=== PATIENT | female | born 2005 | race Caucasian/White ===

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

== ENCOUNTER 2023-02-19 14:06 | Emergency (ER) | payer MEDICAID, SELFPAY ==
[2023-02-19 14:18] VITALS: BP 122/75; PULSE 115; RESP 20; TEMP 38.3; O2SAT 99; BMI 48.2
--- NOTE | 2023-02-19 14:26 | ED.GENADULT ---
HPI - General Adult General Chief complaint: Fever Stated complaint: fever, vomiting, congested Time Seen by Provider: 02/19/23 15:20 Source: patient Mode of arrival: ambulatory Limitations: no limitations History of Present Illness HPI narrative: Patient is a 17-year-old female with history of thrombocytopenia, asthma presenting to the emergency department with complaint of nasal congestion, bilateral ear pain, sore throat and shortness of breath since this morning. Reports subjective fever, chills. Denies cough. Reports mild nausea. Denies any abdominal pain, vomiting, diarrhea. Has not taken any [id number] medications for her symptoms. Denies sick contacts. Denies dysuria or other urinary symptoms. MD complaint: Nasal congestion, ear pain, sore throat Onset (ago): hour(s) Location: head and chest Radiation: non-radiation Severity: moderate Quality: dull Pain Consistency: constant Relieving factors: none Exacerbating factors: none Associated symptoms: fever/chills and shortness of breath Treatments prior to arrival: none Related Data Home Medications Medication Instructions Recorded Confirmed epinephrine 0.3 mg/0.3 mL 0.3 ml IM DIRECTED 08/05/22 08/05/22 injection, auto-injector (EpiPen) Previous Rx's Medication Instructions Recorded ibuprofen 600 mg tablet 600 mg PO Q8H PRN pain #20 tabs 02/07/21 ferrous sulfate 325 mg (65 mg 325 mg PO BID #60 tabs 08/05/22 iron) tablet Allergies Allergy/AdvReac Type Severity Reaction Status Date / Time shrimp [SHRIMP] Allergy Unknown ANGIOEDEMA Verified 02/19/23 14:18 SEASONAL ALLERGIES Allergy Unknown ITCHY EYES Uncoded 02/19/23 14:18 Review of Systems Review of Systems: As per HPI. Yes all other systems are reviewed and are negative Constitutional: Constitutional: Reports as per HPI [facility] Past Medical History Medical History Asthma Thrombocytopenia Family History Family History (Updated 08/05/22 @ 08:30 by Meredith Lisa) Maternal Grandfather Heart disease Mother Stroke Paternal Grandfather Diabetes Paternal Aunt Obesity Other H/O heart bypass surgery Social History Social History (Updated 08/05/22 @ 08:31 by Meredith Lisa) Household Members: [facility] Alcohol intake: never Patient Tobacco Use Status: Never used Tobacco Substance Use Type: Marijuana Advance Directives: No Advance Directives Information Provided: No service: No Current occupational status: employed Current occupation: rt handed/[employer] Physical Exam ED Vital Signs: Vital Signs - 24 hr 02/19/23 14:18 02/19/23 15:44 02/19/23 17:03 Temperature 101 F H 100.7 F H 100.4 F Pulse Rate 115 H 111 H Respiratory Rate 20 20 Blood Pressure 122/75 134/86 Pulse Oximetry 99 99 Oxygen Delivery Method Room Air Room Air BMI result Body Mass Index 48.2 Vital signs have been reviewed and appear to be correct. Blood pressure normal. Heart rate tachycardic. Respiratory rate normal. Febrile. Oxygen saturation normal. Const General: cooperative, healthy appearing and no acute distress Orientation/consciousness: oriented to person, oriented to place, oriented to time and patient oriented x3 Limitations: no limitations HENMT Head: Yes normocephalic and Yes atraumatic Ears: external ears normal, TM's normal bilaterally and EAC's normal General nose exam: Normal external nose present, Normal nares present and Normal septum present Face and sinus: Yes face symmetric Mouth: oropharynx normal and moist mucous membranes Throat: Yes uvula midline and Yes abnormal tonsil (erythema, edema, no exudate; no trismus) Eyes Pupils: Equal, round and reactive pupils present Neck Neck: Yes normal visual inspection, Yes no lymphadenopathy, Yes no meningeal signs and Yes supple Chest Chest palpation & inspection: normal inspection of the chest and normal palpation of entire chest wall Resp Effort & Inspection: normal respiratory effort and able to speak in complete sentences Auscultation: clear to auscultation bilaterally Cardio Rate: regular rate Rhythm: regular rhythm Heart sounds: S1 normal heart sound present and S2 normal heart sound present GI Palpation (GI): Soft to palpation and nontender Auscultation: normoactive bowel sounds General: Yes no CVA tenderness Back/Spine/Pelvis Back: no CVA tenderness Skin General skin exam: elasticity normal and turgor normal Neuro General: oriented to person, oriented to place, oriented to time, patient oriented x3, moves all extremities, no meningeal signs, no focal motor deficits and CN's II-XI intact bilaterally Cranial nerves: Yes Equal, round and reactive pupils present Cognition (Neuro): normal cognition Extrem General: Yes full ROM, Yes no pedal edema and Yes no calf tenderness Psych Mental Status: mental status grossly normal Affect: normal affect Thought process: Normal thought process present Course Course Course Narrative: RME performed by Eloisa Alvarez PA-C. Patient is a 17 year old assigned female at presenting to the emergency department with congestion and nausea. Swab ordered. Patient placed back in the waiting room pending room availability and results. Medications Administered Discontinued Medications Generic Name Dose Route Start Last Admin Trade Name Jovanna PRN Reason Stop Dose Admin Acetaminophen 975 mg 02/19/23 15:47 02/19/23 15:55 Acetaminophen 325 Mg Tablet PO 02/19/23 15:48 975 mg ONCE ONE Administration Medical Decision Making Medical Decision Making [facility] Narrative: Patient is a 17-year-old female with history of thrombocytopenia, asthma presenting to the emergency department with complaint of nasal congestion, bilateral ear pain, sore throat and shortness of breath since this morning. On exam patient is awake, A+Ox3, febrile, tachycardic, VS otherwise normal, normal neurological exam without focal deficits, erythema and edema to posterior oropharynx, no exudate, uvula midline, no trismus, no meningeal signs. Given reported symptoms and physical exam findings, differential includes strep pharyngitis, Covid, influenza, or other viral upper respiratory infection, UTI. Do not suspect sepsis. Unlikely meningitis, pneumonia. Labs notable for negative Covid, flu, and strep. UA positive for 2+ leukocytes, no nitrites, 3-5 epithelials so likely contamination as patient denies urinary symptoms. Reported symptoms and physical exam findings consistent with viral upper respiratory infection. Instructed patient to ensure adequate rest, adequate fluid intake, Tylenol and ibuprofen as needed for fever and discomfort, OTC cold medication for congestion. Instructed patient to follow-up with PCP. Return precautions discussed at bedside. Patient verbalized understanding of and agreement with plan. Differential Diagnosis Differential Diagnoses: The differential diagnosis associated with the presentation includes strep pharyngitis, Covid, influenza, or other viral upper respiratory infection, UTI Lab Data [facility] Lab Attestation statement: I reviewed the patient's lab results. Covid and flu negative Labs: Lab Results 02/19/23 02/19/23 02/19/23 Range/Units 14:43 14:43 15:45 Urine Color Urine Appearance Urine pH (5.0-9.0) Ur Specific Varney (1.005-1.025) Urine Protein (Neg-Trace) mg/dL Urine Glucose (UA) (Negative) mg/dL Urine Ketones (Negative) mg/dL Urine Blood (Negative) Urine Nitrite (Negative) Ur Leukocyte Esterase (Negative) Urine RBC (0-2) /HPF Urine WBC (0-5) /HPF Ur Squamous Epith Cells (0-2) /HPF Urine Bacteria (None Seen) Hyaline Casts (0-2) /LPF Urine Test (NEGATIVE) COVID-19 (DIXIE) Negative (Negative) COVID-19 Clin Com See Note Influenza Type A (JUAN) Negative (Negative) Influenza Type B (JUAN) Negative (Negative) Influenza A & B Note See Note S. pyogenes GrpA JUAN Negative (Negative) 02/19/23 02/19/23 Range/Units 16:19 16:19 Urine Color Yellow Urine Appearance Clear Urine pH 6.0 (5.0-9.0) Ur Specific Varney 1.025 (1.005-1.025) Urine Protein Negative (Neg-Trace) mg/dL Urine Glucose (UA) Negative (Negative) mg/dL Urine Ketones Negative (Negative) mg/dL Urine Blood Negative (Negative) Urine Nitrite Negative (Negative) Ur Leukocyte Esterase Moderate (2+) H (Negative) Urine RBC 0-2 (0-2) /HPF Urine WBC 6-10 (0-5) /HPF Ur Squamous Epith Cells 3-5 (0-2) /HPF Urine Bacteria Trace (None Seen) Hyaline Casts 0-2 (0-2) /LPF Urine Test NEGATIVE (NEGATIVE) COVID-19 (DIXIE) (Negative) COVID-19 Clin Com Influenza Type A (JUAN) (Negative) Influenza Type B (JUAN) (Negative) Influenza A & B Note S. pyogenes GrpA JUAN (Negative) External Record Review External record reviewed: Inpatient record, Office record and Outpatient record Discharge Plan Discharge Clinical Impression: Viral infection Patient Disposition: Home, Self-Care Instructions: Viral Syndrome (ED) Additional Instructions: You were evaluated in the emergency department today for fever. The evaluation, including testing for Covid, flu, and strep, suggests that the symptoms are due to a viral upper respiratory infection. Please alternate Tylenol and Motrin every 4 hours to help control your fever. Ensure plenty of rest and adequate fluid intake. Return to the emergency department immediately if you experience severe cough, fevers greater than 100.4? F that cannot be controlled with Tylenol/ibuprofen, recurrent vomiting, lethargy, seizures, shortness of breath, or any other concerning symptoms. Prescriptions: No Action ibuprofen 600 mg tablet 600 mg PO Q8H PRN (Reason: pain) Qty: 20 0RF epinephrine [EpiPen] 0.3 mg/0.3 mL auto-injector 0.3 ml IM DIRECTED ferrous sulfate 325 mg (65 mg iron) Tablet 325 mg PO BID Qty: 60 3RF
[2023-02-19 15:44] VITALS: BP 134/86; PULSE 111; RESP 20; TEMP 38.2; O2SAT 99
--- NOTE | 2023-02-19 15:48 | PC.NURSE ---
viral swab sent for strep A, pt temp 100.7 APAP ordered
--- NOTE | 2023-02-19 15:56 | PC.NURSE ---
pt medicated per mar for fever 100.7 08/31 pain
[2023-02-19 17:03] VITALS: TEMP 38
== END 2023-02-19 17:46 | disposition home or self-care (01) ==
PROVIDERS: Emergency Provider Emergency Medicine Emergency Medical Services; PCP Internal Medicine
DX: B34.9 Viral infection, unspecified (principal); J02.9 Acute pharyngitis, unspecified; R50.9 Fever, unspecified; Z20.822 Contact with and (suspected) exposure to COVID-19; F12.90 Cannabis use, unspecified, uncomplicated
CPT/HCPCS: 81001; 81025; 87086; 87502; 87635; 87651; 99283; 99284

== ENCOUNTER 2023-02-24 12:11 | Emergency (ER) | payer MEDICAID, SELFPAY ==
[2023-02-24 12:51] VITALS: BP 154/61; PULSE 85; RESP 16; TEMP 36; O2SAT 97; BMI 48.1
--- NOTE | 2023-02-24 12:52 | ED.GENADULT ---
HPI - General Adult General Chief complaint: General Medical Stated complaint: rash on body Time Seen by Provider: 02/24/23 13:02 History of Present Illness HPI narrative: patient complains of itchy rash all over her body for last several days, she did see her primary doctor who started her on Benadryl which does not seem to be helping She has no difficulty breathing no sores or swelling in her mouth or throat There are no new medications, no swelling in the throat no difficulty swallowing Related Data Home Medications Medication Instructions Recorded Confirmed epinephrine 0.3 mg/0.3 mL 0.3 ml IM DIRECTED 08/05/22 08/05/22 injection, auto-injector (EpiPen) Previous Rx's Medication Instructions Recorded ibuprofen 600 mg tablet 600 mg PO Q8H PRN pain #20 tabs 02/07/21 ferrous sulfate 325 mg (65 mg 325 mg PO BID #60 tabs 08/05/22 iron) tablet cetirizine 10 mg tablet 10 mg PO DAILY PRN allergy 02/24/23 symptoms #14 tabs permethrin 5 % topical cream 1 appl topical Q14D 2 doses #60 02/24/23 grams prednisone 20 mg tablet 60 mg PO DAILY 3 days #9 tabs 02/24/23 Allergies Allergy/AdvReac Type Severity Reaction Status Date / Time shrimp [SHRIMP] Allergy Unknown ANGIOEDEMA Verified 02/24/23 12:51 SEASONAL ALLERGIES Allergy Unknown ITCHY EYES Uncoded 02/19/23 14:18 PMFSH Past Medical History Source: nursing notes reviewed Medical History Asthma Thrombocytopenia Family History Family History (Updated 08/05/22 @ 08:30 by Meredith Lisa) Maternal Grandfather Heart disease Mother Stroke Paternal Grandfather Diabetes Paternal Aunt Obesity Other H/O heart bypass surgery Social History Social History (Updated 08/05/22 @ 08:31 by Meredith Lisa) Household Members: Family Housing: Condominium Alcohol intake: never Patient Tobacco Use Status: Never used Tobacco Substance Use Type: Marijuana Advance Directives: No service: No Current occupational status: employed Current occupation: rt handed/[employer] Physical Exam ED Vital Signs: Vital Signs - 24 hr 02/24/23 12:51 Temperature 96.8 F Pulse Rate 85 Respiratory Rate 16 Blood Pressure 154/61 H Pulse Oximetry 97 Oxygen Delivery Method Room Air BMI result Body Mass Index 48.1 general appearance comfortable no distress calm and cooperative The eyes no redness or discharge The sinuses nontender The pharynx is clear, no redness swelling or exudate, voice is normal no swelling of lips tongue or uvula no drooling Respiratory no distress Extremities range motion x4 Skin there is a papular excoriated rash over most of the body, including the palms and the web spaces of the hands, no petechiae no purpura no significant erythema no swelling no signs of cellulitis or abscess, rashes both sides of the body, no vesicular rash no unilateral rash Course Course Course Narrative: This is an RME: Additional HPI, ROS, PE not included below will be deferred to primary provider. 17-year-old female with history of thrombocytopenia and asthma presenting to the emergency department with complaint of diffusely itchy rash and headache. Was seen here last week was diagnosed with a viral infection. Was given benadryl for rash which she has taken without relief. ?purpura noted to bilateral palms. Plan: Basic labs patient with papular rash including palms and soles and web spaces is treated with permethrin for possible scabies, cetirizine and prednisone for itchy rash RPR testing for syphilis is done and well-appearing patient is discharged She has thrombocytopenia and her platelets today were 89 which is good for her, she has no bleeding from anywhere Medical Decision Making Lab Data 02/24/23 13:14 02/24/23 13:14 Labs: Lab Results 02/24/23 02/24/23 02/24/23 Range/Units 13:14 13:14 13:14 WBC 9.0 (4.8-10.8) X10*3/uL RBC 5.17 (4.20-5.50) X10*6/uL Hgb 12.9 (12.0-16.0) g/dl Hct 40.5 (37.0-47.0) % MCV 78.3 L (80.0-98.0) fL MCH 25.0 L (27.0-33.0) pg MCHC 31.9 (31.0-35.0) g/dl RDW 13.5 (11.0-16.0) % Plt Count 89 L (160-400) X10*3/uL MPV Not Reportable Immature Gran % (Auto) 0.6 H (0.0-0.4) % Neut % (Auto) 62.5 (45-73) % Lymph % (Auto) 30.6 (20-40) % [place] % (Auto) 5.0 (2-11) % Eos % (Auto) 0.6 (0-4) % Baso % (Auto) 0.7 (0-2) % Lymph # (Auto) 2.7 (1.2-4.9) X10*3/uL [place] # (Auto) 0.5 (0.1-1.2) X10*3/uL Eos # (Auto) 0.1 (0.0-0.4) X10*3/uL Baso # (Auto) 0.1 (0.0-0.2) X10*3/uL Abs Immat Gran (auto) 0.05 H (0.00-0.03) X10*3/uL Absolute Neuts (auto) 5.6 (2.0-8.3) x10*3/uL Absolute Nucleated RBC 0.000 (0.0-0.012) X10*3/uL Nucleated RBC % (auto) 0.0 (0.0-0.2) /100WBC Smear Tech's Comments VERIFIED PT (10.0-13.1) SEC INR (0.9-1.1) APTT Cancelled Sodium 139 (135-145) mmol/L Potassium 4.1 (3.3-5.1) mmol/L Chloride 106 (96-108) mmol/L Carbon Dioxide 23 (22-29) mmol/L Anion Gap 14 (12-20) BUN 9 (9-16) mg/dL Creatinine 0.68 (0.5-1.4) mg/dL Estim Creat Clear Calc 175.6 Estimated GFR > 60 Random Glucose 87 (60-115) mg/dL Calcium 9.8 D (8.4-10.2) mg/dL Total Bilirubin 0.5 (0.0-1.0) mg/dL Direct Bilirubin 0.1 (0.0-0.5) mg/dL AST 14 (5-31) U/L ALT 14 (0-31) U/L Alkaline Phosphatase 68 (39-117) U/L Total Protein 7.9 (6.5-8.0) g/dL Albumin 4.2 (3.5-5.0) g/dL 02/24/23 Range/Units 13:14 WBC (4.8-10.8) X10*3/uL RBC (4.20-5.50) X10*6/uL Hgb (12.0-16.0) g/dl Hct (37.0-47.0) % MCV (80.0-98.0) fL MCH (27.0-33.0) pg MCHC (31.0-35.0) g/dl RDW (11.0-16.0) % Plt Count (160-400) X10*3/uL MPV Immature Gran % (Auto) (0.0-0.4) % Neut % (Auto) (45-73) % Lymph % (Auto) (20-40) % [place] % (Auto) (2-11) % Eos % (Auto) (0-4) % Baso % (Auto) (0-2) % Lymph # (Auto) (1.2-4.9) X10*3/uL [place] # (Auto) (0.1-1.2) X10*3/uL Eos # (Auto) (0.0-0.4) X10*3/uL Baso # (Auto) (0.0-0.2) X10*3/uL Abs Immat Gran (auto) (0.00-0.03) X10*3/uL Absolute Neuts (auto) (2.0-8.3) x10*3/uL Absolute Nucleated RBC (0.0-0.012) X10*3/uL Nucleated RBC % (auto) (0.0-0.2) /100WBC Smear Tech's Comments PT 11.7 (10.0-13.1) SEC INR 1.0 (0.9-1.1) APTT 32.6 Sodium (135-145) mmol/L Potassium (3.3-5.1) mmol/L Chloride (96-108) mmol/L Carbon Dioxide (22-29) mmol/L Anion Gap (12-20) BUN (9-16) mg/dL Creatinine (0.5-1.4) mg/dL Estim Creat Clear Calc Estimated GFR Random Glucose (60-115) mg/dL Calcium (8.4-10.2) mg/dL Total Bilirubin (0.0-1.0) mg/dL Direct Bilirubin (0.0-0.5) mg/dL AST (5-31) U/L ALT (0-31) U/L Alkaline Phosphatase (39-117) U/L Total Protein (6.5-8.0) g/dL Albumin (3.5-5.0) g/dL Discharge Plan Discharge Clinical Impression: Rash Patient Disposition: Home, Self-Care Additional Instructions: we are treating for possible scabies with permethrin cream, you put it all over her body and leave it overnight for at least 10 hours then shower it off, then repeat the same process in 2 weeks We also tested for possible syphilis which can cause a rash on the palms If test is positive we will call you and if you do not fruit picker we will leave a message on the machine If you get a message on the machine make sure to call us back at [phone] and ask for the physician assistant tennis professional who is doing lab follow ups We will not call back if testing is normal Return to the ER any time any worse condition or concerns Of treatment provided today does not work follow with primary doctor for referral to a staffing consultant Prescriptions: New prednisone 20 mg tablet 60 mg PO DAILY 3 Days Qty: 9 0RF cetirizine 10 mg tablet 10 mg PO DAILY PRN (Reason: allergy symptoms) Qty: 14 0RF permethrin 5 % cream 1 appl topical Q14D Qty: 60 0RF Rx Instructions: apply second treatment 14 days from neck to bottom of feet, leave on 10 hours then shower No Action ibuprofen 600 mg tablet 600 mg PO Q8H PRN (Reason: pain) Qty: 20 0RF epinephrine [EpiPen] 0.3 mg/0.3 mL auto-injector 0.3 ml IM DIRECTED ferrous sulfate 325 mg (65 mg iron) Tablet 325 mg PO BID Qty: 60 3RF Interventions: ED Discharge Assessment Last Done: 02/24/23 14:40 Discharge Date/Time: 02/24/23 14:40
--- NOTE | 2023-02-24 13:03 | ED.GENADULT ---
HPI - General Adult General Chief complaint: General Medical Stated complaint: rash on body Time Seen by Provider: 02/24/23 13:02 History of Present Illness HPI narrative: there is a full note for this patient, this visit already dictated see other note Related Data Home Medications Medication Instructions Recorded Confirmed epinephrine 0.3 mg/0.3 mL 0.3 ml IM DIRECTED 08/05/22 08/05/22 injection, auto-injector (EpiPen) Previous Rx's Medication Instructions Recorded ibuprofen 600 mg tablet 600 mg PO Q8H PRN pain #20 tabs 02/07/21 ferrous sulfate 325 mg (65 mg 325 mg PO BID #60 tabs 08/05/22 iron) tablet cetirizine 10 mg tablet 10 mg PO DAILY PRN allergy 02/24/23 symptoms #14 tabs permethrin 5 % topical cream 1 appl topical Q14D 2 doses #60 02/24/23 grams prednisone 20 mg tablet 60 mg PO DAILY 3 days #9 tabs 02/24/23 Allergies Allergy/AdvReac Type Severity Reaction Status Date / Time shrimp [SHRIMP] Allergy Unknown ANGIOEDEMA Verified 02/24/23 12:51 SEASONAL ALLERGIES Allergy Unknown ITCHY EYES Uncoded 02/19/23 14:18 PMFSH Past Medical History Medical History Asthma Thrombocytopenia Family History Family History (Updated 08/05/22 @ 08:30 by Meredith Lisa) Maternal Grandfather Heart disease Mother Stroke Paternal Grandfather Diabetes Paternal Aunt Obesity Other H/O heart bypass surgery Social History Social History (Updated 08/05/22 @ 08:31 by Meredith Lisa) Household Members: [facility] Alcohol intake: never Patient Tobacco Use Status: Never used Tobacco Substance Use Type: Marijuana Advance Directives: No service: No Current occupational status: employed Current occupation: rt handed/[employer] Physical Exam ED Vital Signs: Vital Signs - 24 hr 02/24/23 12:51 Temperature 96.8 F Pulse Rate 85 Respiratory Rate 16 Blood Pressure 154/61 H Pulse Oximetry 97 Oxygen Delivery Method Room Air BMI result Body Mass Index 48.1 Medical Decision Making Lab Data 02/24/23 13:14 02/24/23 13:14 Labs: Lab Results 07/06/23 07/06/23 07/06/23 Range/Units 13:14 13:14 13:14 WBC 9.0 (4.8-10.8) X10*3/uL RBC 5.17 (4.20-5.50) X10*6/uL Hgb 12.9 (12.0-16.0) g/dl Hct 40.5 (37.0-47.0) % MCV 78.3 L (80.0-98.0) fL MCH 25.0 L (27.0-33.0) pg MCHC 31.9 (31.0-35.0) g/dl RDW 13.5 (11.0-16.0) % Plt Count 89 L (160-400) X10*3/uL MPV Not Reportable Immature Gran % (Auto) 0.6 H (0.0-0.4) % Neut % (Auto) 62.5 (45-73) % Lymph % (Auto) 30.6 (20-40) % [place] % (Auto) 5.0 (2-11) % Eos % (Auto) 0.6 (0-4) % Baso % (Auto) 0.7 (0-2) % Lymph # (Auto) 2.7 (1.2-4.9) X10*3/uL [place] # (Auto) 0.5 (0.1-1.2) X10*3/uL Eos # (Auto) 0.1 (0.0-0.4) X10*3/uL Baso # (Auto) 0.1 (0.0-0.2) X10*3/uL Abs Immat Gran (auto) 0.05 H (0.00-0.03) X10*3/uL Absolute Neuts (auto) 5.6 (2.0-8.3) x10*3/uL Absolute Nucleated RBC 0.000 (0.0-0.012) X10*3/uL Nucleated RBC % (auto) 0.0 (0.0-0.2) /100WBC Smear Tech's Comments VERIFIED PT (10.0-13.1) SEC INR (0.9-1.1) APTT Cancelled Sodium 139 (135-145) mmol/L Potassium 4.1 (3.3-5.1) mmol/L Chloride 106 (96-108) mmol/L Carbon Dioxide 23 (22-29) mmol/L Anion Gap 14 (12-20) BUN 9 (9-16) mg/dL Creatinine 0.68 (0.5-1.4) mg/dL Estim Creat Clear Calc 175.6 Estimated GFR > 60 Random Glucose 87 (60-115) mg/dL Calcium 9.8 D (8.4-10.2) mg/dL Total Bilirubin 0.5 (0.0-1.0) mg/dL Direct Bilirubin 0.1 (0.0-0.5) mg/dL AST 14 (5-31) U/L ALT 14 (0-31) U/L Alkaline Phosphatase 68 (39-117) U/L Total Protein 7.9 (6.5-8.0) g/dL Albumin 4.2 (3.5-5.0) g/dL 02/24/23 Range/Units 13:14 WBC (4.8-10.8) X10*3/uL RBC (4.20-5.50) X10*6/uL Hgb (12.0-16.0) g/dl Hct (37.0-47.0) % MCV (80.0-98.0) fL MCH (27.0-33.0) pg MCHC (31.0-35.0) g/dl RDW (11.0-16.0) % Plt Count (160-400) X10*3/uL MPV Immature Gran % (Auto) (0.0-0.4) % Neut % (Auto) (45-73) % Lymph % (Auto) (20-40) % [place] % (Auto) (2-11) % Eos % (Auto) (0-4) % Baso % (Auto) (0-2) % Lymph # (Auto) (1.2-4.9) X10*3/uL [place] # (Auto) (0.1-1.2) X10*3/uL Eos # (Auto) (0.0-0.4) X10*3/uL Baso # (Auto) (0.0-0.2) X10*3/uL Abs Immat Gran (auto) (0.00-0.03) X10*3/uL Absolute Neuts (auto) (2.0-8.3) x10*3/uL Absolute Nucleated RBC (0.0-0.012) X10*3/uL Nucleated RBC % (auto) (0.0-0.2) /100WBC Smear Tech's Comments PT 11.7 (10.0-13.1) SEC INR 1.0 (0.9-1.1) APTT 32.6 Sodium (135-145) mmol/L Potassium (3.3-5.1) mmol/L Chloride (96-108) mmol/L Carbon Dioxide (22-29) mmol/L Anion Gap (12-20) BUN (9-16) mg/dL Creatinine (0.5-1.4) mg/dL Estim Creat Clear Calc Estimated GFR Random Glucose (60-115) mg/dL Calcium (8.4-10.2) mg/dL Total Bilirubin (0.0-1.0) mg/dL Direct Bilirubin (0.0-0.5) mg/dL AST (5-31) U/L ALT (0-31) U/L Alkaline Phosphatase (39-117) U/L Total Protein (6.5-8.0) g/dL Albumin (3.5-5.0) g/dL Discharge Plan Discharge Clinical Impression: Rash Patient Disposition: Home, Self-Care Additional Instructions: we are treating for possible scabies with permethrin cream, you put it all over her body and leave it overnight for at least 10 hours then shower it off, then repeat the same process in 2 weeks We also tested for possible syphilis which can cause a rash on the palms If test is positive we will call you and if you do not apple picking supervisor we will leave a message on the machine If you get a message on the machine make sure to call us back at [phone] and ask for the physician recreational assistant who is doing lab follow ups We will not call back if testing is normal Return to the ER any time any worse condition or concerns Of treatment provided today does not work follow with primary doctor for referral to a human resources services specialist Prescriptions: New prednisone 20 mg tablet 60 mg PO DAILY 3 Days Qty: 9 0RF cetirizine 10 mg tablet 10 mg PO DAILY PRN (Reason: allergy symptoms) Qty: 14 0RF permethrin 5 % cream 1 appl topical Q14D Qty: 60 0RF Rx Instructions: apply second treatment 14 days from neck to bottom of feet, leave on 10 hours then shower No Action ibuprofen 600 mg tablet 600 mg PO Q8H PRN (Reason: pain) Qty: 20 0RF epinephrine [EpiPen] 0.3 mg/0.3 mL auto-injector 0.3 ml IM DIRECTED ferrous sulfate 325 mg (65 mg iron) Tablet 325 mg PO BID Qty: 60 3RF Interventions: ED Discharge Assessment Last Done: 02/24/23 14:40 Discharge Date/Time: 02/24/23 14:40
[2023-02-24 13:42] LABS: Alanine Aminotransferase 14 U/L (0-31); Albumin Level 4.2 g/dL (3.5-5.0); Alkaline Phosphatase 68 U/L (39-117); Anion Gap 14 (12-20); Aspartate Amino Transferase 14 U/L (5-31); Bilirubin Direct 0.1 mg/dL (0.0-0.5); Bilirubin Total 0.5 mg/dL (0.0-1.0); Blood Urea Nitrogen 9 mg/dL (9-16); Calcium 9.8 mg/dL (8.4-10.2); Carbon Dioxide 23 mmol/L (22-29); Chloride 106 mmol/L (96-108); Creatinine Clr Calc Pharmacy 175.6; Estimated Glomerular Filt Rate > 60; Glucose Random 87 mg/dL (60-115); Potassium 4.1 mmol/L (3.3-5.1); Sodium 139 mmol/L (135-145); Total Protein 7.9 g/dL (6.5-8.0)
== END 2023-02-24 14:40 | disposition home or self-care (01) ==
PROVIDERS: Physician Assistant Medical; Emergency Provider Emergency Medicine Emergency Medical Services
DX: R21 Rash and other nonspecific skin eruption (principal); F12.90 Cannabis use, unspecified, uncomplicated; Z79.899 Other long term (current) drug therapy
CPT/HCPCS: 36415; 80048; 80076; 85025; 85610; 85730; 86780; 99283

== ENCOUNTER 2023-05-19 11:19 | Outpatient (REF) | payer MEDICAID, SELFPAY ==
[2023-05-19 13:00] LABS: MANUAL DIFF FLAG NO
[2023-05-19 13:30] LABS: Basophils Absolute Auto 0.1 X10*3/uL (0.0-0.2); Basophils Percent Auto 0.6 % (0-2); Eosinophils Absolute Auto 0.1 X10*3/uL (0.0-0.4); Eosinophils Percent Auto 0.6 % (0-4); Hematocrit 41.8 % (37.0-47.0); Hemoglobin 13.2 g/dl (12.0-16.0); Imm Gran Abs Auto 0.07 X10*3/uL (0.00-0.03); Imm Gran Pct Auto 0.6 % (0.0-0.4); Lymphocytes Absolute Auto 2.8 X10*3/uL (1.2-4.9); Lymphocytes Percent Auto 22.8 % (20-40); Mean Corpuscular HGB Conc 31.6 g/dl (31.0-35.0); Mean Corpuscular Hemoglobin 25.2 pg (27.0-33.0); Mean Corpuscular Volume 79.8 fL (80.0-98.0); Monocytes Absolute Auto 0.9 X10*3/uL (0.1-1.2); Monocytes Percent Auto 7.5 % (2-11); Neutrophils Absolute Auto 8.4 x10*3/uL (2.0-8.3); Neutrophils Percent Auto 67.9 % (45-73); Red Blood Count 5.24 X10*6/uL (4.20-5.50); Red Cell Distribution Width 15.1 % (11.0-16.0); White Blood Count 12.4 X10*3/uL (4.8-10.8)
[2023-05-19 13:31] LABS: Platelet Count 52 X10*3/uL (160-400)
[2023-05-19 13:57] LABS: Iron 27 mcg/dL (30-160); Percent Iron Saturation 8 % (15-50); Total Iron Binding Capacity 357 mcg/dL (228-428); Unsaturated Iron Binding 330 ug/dL
[2023-05-19 16:51] LABS: CT PCR NOT DETECTED (Not Detect.); NG PCR NOT DETECTED (Not Detect.)
[2023-05-20 03:11] LABS: Syphilis Screen Nonreactive (Nonreactive)
[2023-05-20 03:47] LABS: HIV AB/AG Nonreactive (Nonreactive); HIV Num 1 0.07 S/CO (0.00-0.99); ~HepC Num1 0.06 S/CO (0.00-0.79); ~Hepatitis C Antibody Nonreactive (Nonreactive)
== END 2023-05-19 11:20 | disposition home or self-care (01) ==
LOC: HO.HHCL 11:19
PROVIDERS: Visit Provider Internal Medicine
DX: Z30.09 Encounter for other general counseling and advice on contraception (principal); D69.6 Thrombocytopenia, unspecified
CPT/HCPCS: 0353U; 83540; 85025; 86780; 86803; 87389

== ENCOUNTER 2023-12-30 14:47 | Emergency (ER) | payer OTHER, SELFPAY ==
[2023-12-30] VITALS (10 sets, daily range): BP systolic 101–160; BP diastolic 32–80; PULSE 74–95; RESP 14–20; TEMP 36.4–37.2; O2SAT 100; BMI 41.3
--- NOTE | ~2023-12-30 | XR_ITS ---
EXAMINATION: XR CHEST CLINICAL INFORMATION: Dyspnea COMPARISON: None available. TECHNIQUE: Frontal view of the chest was obtained. FINDINGS: No significant abnormality is noted involving the heart, lungs, mediastinum, bony thorax or soft tissues. XR/XR chest 1V IMPRESSION: Unremarkable examination.
--- NOTE | 2023-12-30 15:05 | PC.NURSE ---
patient a&ox3, vss, pt speaking in full sentences- O2 sat wnl, conveyor monitor applied nsr to sinus tach on monitor. pt states she is a difficult stick and they use ultrasound guided. will notify provider
--- NOTE | 2023-12-30 15:17 | ECG_ITS ---
Test Reason : TACHYCARDIA Blood Pressure : / mmHG Vent. Rate : 091 BPM Atrial Rate : 091 BPM P-R Int : 130 ms QRS Dur : 096 ms QT Int : 342 ms P-R-T Axes : 005 040 023 degrees QTc Int : 420 ms Normal sinus rhythm with sinus arrhythmia Normal ECG When compared with ECG of 15-SEP-2017 13:33, No significant changes seen Referred By: Junior Mcclain Electronically Signed By:Todd Powell
--- NOTE | 2023-12-30 15:23 | ED.GENADULT ---
HPI - General Adult General Chief complaint: Recheck/Abnormal Lab/Rx Stated complaint: VAGINAL BLEEDING Time Seen by Provider: 12/30/23 15:09 Source: patient Limitations: no limitations History of Present Illness HPI narrative: 18 years old with past medical history of PCOS, iron deficiency anemia, thrombocytopenia recently seen in the hospital for vaginal bleeding and started on medroxyprogesterone on December 21, presents to the emergency room sent by her primary care doctor for low hemoglobin. Patient reports that over the past few weeks and especially over the past few days she had worsening shortness of breath on exertion and palpitations. She reports since she started the progesterone her vaginal bleeding has stopped. Today per her PCP her hemoglobin was 4.5. Patient is also on iron. Patient denies abdominal pain nausea or vomiting, denies rectal bleeding or hematemesis. Related Data Home Medications ?Medication ?Instructions ?Recorded ?Confirmed epinephrine 0.3 mg/0.3 mL 0.3 ml IM DIRECTED 08/05/22 08/05/22 injection, auto-injector (EpiPen) Previous Rx's ?Medication ?Instructions ?Recorded ibuprofen 600 mg tablet 600 mg PO Q8H PRN pain #20 tabs 02/07/21 ferrous sulfate 325 mg (65 mg 325 mg PO BID #60 tabs 08/05/22 iron) tablet cetirizine 10 mg tablet 10 mg PO DAILY PRN allergy 02/24/23 symptoms #14 tabs permethrin 5 % topical cream 1 appl topical Q14D 2 doses #60 02/24/23 grams prednisone 20 mg tablet 60 mg (3 x 20 mg) PO DAILY 3 days 02/24/23 #9 tabs Allergies Allergy/AdvReac Type Severity Reaction Status Date / Time shrimp [SHRIMP] Allergy Unknown ANGIOEDEMA Verified 12/30/23 15:02 Review of Systems Review of Systems: Yes all other systems are reviewed and are negative [facility] Past Medical History Medical History Asthma Thrombocytopenia Family History Family History (Updated 08/05/22 @ 08:30 by Meredith Lisa) Maternal Grandfather Heart disease Mother Stroke Paternal Grandfather Diabetes Paternal Aunt Obesity Other H/O heart bypass surgery Social History Social History (Updated 08/05/22 @ 08:31 by Meredith Lisa) Household Members: [facility] Alcohol intake: never Patient Tobacco Use Status: Never used Tobacco Smoked in Last 30 Days: No Use of substances other than those prescribed or required for medical reasons: No Substance Use Type: Marijuana Advance Directives: No Advance Directives Information Provided: No Do you have a plan to hurt others: No Plan service: No Current occupational status: employed Current occupation: rt handed/[employer] Physical Exam ED Vital Signs: Vital Signs - 24 hr 12/30/23 15:00 12/30/23 16:54 12/30/23 18:13 Temperature 97.5 F 97.6 F 97.8 F Pulse Rate 89 88 74 Respiratory Rate 18 15 16 Blood Pressure 130/63 114/48 L 119/65 Pulse Oximetry 100 100 100 Oxygen Delivery Method Room Air Room Air Room Air 12/30/23 19:56 12/30/23 20:02 12/30/23 20:13 Temperature 98.9 F 98.9 F 98.7 F Pulse Rate 88 87 89 Respiratory Rate 16 17 14 Blood Pressure 101/32 L 102/33 L 118/45 L Pulse Oximetry 100 Oxygen Delivery Method Room Air BMI result Body Mass Index 41.3 General: Alert, Not in Distress Skin: No rash, warm HEENT: Atraumatic, No Exudate or Pharyngeal Erythema Resp: Normal Breath sounds bilaterally Cardio: Regular rate and Rhythm, Normal S1, S2 ABD: Abd soft, non tender, no guarding or rebound. Normal Bowel sounds. : No cva tenderness. No active vaginal bleeding Neuro: Alert, oriented x4, PERRL Strenght 5/5 on all extremities Sensation is preserved in both lower and upper extremities Index to nose: normal Cranial Nerves II-XII grossly intact No dysarthria, or aphasia No neglet. Visual chakraborty are normal bilaterally Psych: Cooperative, NO SI Course Reevaluation(s) Reevaluation #1: Discuss case with OB on-call Dr. Workman, he recommended outpatient follow-up closely with the patient's bull bucker, I spoke with the patient herself and she told me that her gynecology work at [facility], Dr. Balderas, she recently had an appointment and her OBGYN told her that most likely the bleeding is secondary to PCOS, I recommended that once she gets discharged from the hospital she needs to follow-up closely with the bull bucker, patient understands and agrees with plan. Plan at this time is to transfuse 3 units of RBC and discharged home if no complication. Time: 15:57 Reevaluation #2: Patient's hemoglobin 6.0, will transfuse then only 1 units to reach out a level of 7 grams/deciliter. Patient has already started on iron by PCP. Rest of the lab work is pending at this time. Time: 16:36 Reevaluation #3: In consideration of the fact the patient was very symptomatic going to the bathroom, and the fact that she had an hemoglobin of 4.5 and outpatient today and hemoglobin today 6. I discussed the pros and cons with patient of transfusing 2 units rather than 1 eventually we did showed this is amazing in transfusing 2 units. Patient he starting out 1st unit. Will send out care at 9:[address] Vides Time: 20:09 Medications Administered Discontinued Medications Generic Name Dose Route Start Last Admin Trade Name Freq PRN Reason Stop Dose Admin Sodium Chloride 100 mls @ 100 mls/hr 12/30/23 15:33 12/30/23 19:56 Ns IV 12/30/23 16:32 100 mls/hr ONCE ONE Administration Sodium Chloride 100 mls @ 100 mls/hr 12/30/23 15:33 12/30/23 20:04 Ns IV 12/30/23 16:32 Not Given ONCE ONE Medical Decision Making Medical Decision Making [facility] Narrative: Patient presents to the emergency room for outpatient blood work that showed anemia of 4.5 likely from chronic vaginal bleeding the patient is having since September. Patient will talk to me bleeding, tachycardic on arrival but otherwise stable. Plan is to transfuse 3 units of blood to reach hemoglobin level of 7.5. We will confirm 1st hemoglobin level with CBC, will get a type and screen. Given patient's tachycardia will get an EKG and given the shortness of breath will get a chest x-ray. We will consult body line finisher Lab Data 12/30/23 16:18 Labs: Lab Results 12/30/23 12/30/23 Range/Units 16:17 16:18 WBC 8.9 (4.8-10.8) X10*3/uL RBC 2.40 L D (4.20-5.50) X10*6/uL Hgb 6.0 L* D (12.0-16.0) g/dl Hct 20.1 L* D (37.0-47.0) % MCV 83.8 (80.0-98.0) fL MCH 25.0 L (27.0-33.0) pg MCHC 29.9 L (31.0-35.0) g/dl RDW 15.2 (11.0-16.0) % Plt Count 342 D (160-400) X10*3/uL MPV 11.8 (9.4-12.3) fL Immature Gran % (Auto) 1.2 H (0.0-0.4) % Neut % (Auto) 68.4 (45-73) % Lymph % (Auto) 22.2 (20-40) % [place] % (Auto) 7.0 (2-11) % Eos % (Auto) 0.3 (0-4) % Baso % (Auto) 0.9 (0-2) % Lymph # (Auto) 2.0 (1.2-4.9) X10*3/uL [place] # (Auto) 0.6 (0.1-1.2) X10*3/uL Eos # (Auto) 0.0 (0.0-0.4) X10*3/uL Baso # (Auto) 0.1 (0.0-0.2) X10*3/uL Abs Immat Gran (auto) 0.11 H (0.00-0.03) X10*3/uL Absolute Neuts (auto) 6.1 (2.0-8.3) x10*3/uL Absolute Nucleated RBC 0.110 H (0.0-0.012) X10*3/uL Nucleated RBC % (auto) 1.2 H (0.0-0.2) /100WBC Hold Purple Top SEE NOTE PT 13.0 (11.1-13.3) SEC INR 1.1 (0.9-1.1) Vitamin B12 399 (200-900) pg/mL Folate 15.8 (> or = 4.0) ng/mL Hold Red Top See Note Urine Test Cancelled Blood Type A Positive Antibody Screen NEGATIVE Crossmatch See Detail Independent Interpretation I performed an independent interpretation of an: EKG (I personally interpreted and reviewed patient's EKG that shows normal sinus rhythm) Critical Care Time Critical Care Time Critical Care Time: Yes Total Critical Care Time: 35 Attestation: The patient was critical ill with high probability of imminent of life-threatening deterioration, due to severe anemia I spent 35 minutes of discontinuous time evaluating the patient, delivering critical care at bedside, discussing and evaluating parents and does not with wedding consultant, critical care time does not include time spent performing separately billable procedure or teaching. Discharge Plan Discharge Clinical Impression: Anemia Qualifiers: Anemia type: iron deficiency Additional Instructions: You were seen in the emergency room for low hemoglobin. On our evaluation your hemoglobin was 6.0. We transfused 2 units of blood. We contacted our OBGYN service who recommended for you to follow-up closely as an outpatient with your OBGYN. Please call the office tomorrow to schedule an appointment. Continue take iron p.o.. Return to the emergency room if your symptoms worsen or if you experience new vaginal bleeding. Prescriptions: No Action ibuprofen 600 mg tablet 600 mg PO Q8H PRN (Reason: pain) Qty: 20 0RF epinephrine [EpiPen] 0.3 mg/0.3 mL auto-injector 0.3 ml IM DIRECTED ferrous sulfate 325 mg (65 mg iron) Tablet 325 mg PO BID Qty: 60 3RF prednisone 20 mg tablet 60 mg PO DAILY 3 Days Qty: 9 0RF cetirizine 10 mg tablet 10 mg PO DAILY PRN (Reason: allergy symptoms) Qty: 14 0RF permethrin 5 % cream 1 appl topical Q14D Qty: 60 0RF Rx Instructions: apply second treatment 14 days from neck to bottom of feet, leave on 10 hours then shower Print Language: Greek
[2023-12-30 16:27] LABS: MANUAL DIFF FLAG NO
[2023-12-30 16:28] LABS: Basophils Absolute Auto 0.1 X10*3/uL (0.0-0.2); Basophils Percent Auto 0.9 % (0-2); Eosinophils Percent Auto 0.3 % (0-4); Imm Gran Abs Auto 0.11 X10*3/uL (0.00-0.03); Imm Gran Pct Auto 1.2 % (0.0-0.4); Lymphocytes Percent Auto 22.2 % (20-40); Mean Corpuscular HGB Conc 29.9 g/dl (31.0-35.0); Mean Corpuscular Volume 83.8 fL (80.0-98.0); Mean Platelet Volume 11.8 fL (9.4-12.3); Monocytes Absolute Auto 0.6 X10*3/uL (0.1-1.2); Neutrophils Absolute Auto 6.1 x10*3/uL (2.0-8.3); Neutrophils Percent Auto 68.4 % (45-73); Platelet Count 342 X10*3/uL (160-400); Red Cell Distribution Width 15.2 % (11.0-16.0); White Blood Count 8.9 X10*3/uL (4.8-10.8)
[2023-12-30 16:30] LABS: NRBC Pct Auto 1.2 /100WBC (0.0-0.2)
[2023-12-30 16:35] LABS: Hematocrit 20.1 % (37.0-47.0); INTERNATIONAL NORM RATIO 1.1 (0.9-1.1)
[2023-12-30 17:22] LABS: Folate 15.8 ng/mL (> or = 4.0); Vitamin B12 399 pg/mL (200-900)
--- NOTE | 2023-12-30 17:52 | PC.NURSE ---
second t&s drawn per request of lab, awaiting blood pt continues to be A&Ox3, family at bedside, denies pain/discomfort at this time, will continue to monitor
--- NOTE | 2023-12-30 18:34 | PC.NURSE ---
this nurse got a phone call from the lab stating that the patients 2nd T&S pink tube was not collected correctly and that we need to scan it. This nurse spoke with multiple techs as well as charge nurse who stated that we use a chart sticker, our mnemonics date/time as well as a sticker from the blood bank band, the lab stated this was incorrect and it needed to be scanned- there is no order on our side showing this to be scanned. the lab stated they cancelled and reordered it, had this nurse look and it still does not show. this nurse told the lab that this patient is an extremely difficult stick/draw with an US IV which was a difficult placement as well and if they needed to have another draw that a high school social studies tutor will need to come to the ED and do the draw and scan it off since we are unable to see this order. The provider has been notified of this as well.
--- NOTE | 2023-12-30 20:00 | PC.NURSE ---
pt is axox4. vitals as documented bp 101/32 asymptomatic. blood infusion started per Tar. pt is speaking full clear sentences. denies cp/sob/n/v/d. nsr on monitor. lung sounds cta. call laureano within reach.
--- NOTE | 2023-12-30 20:14 | PC.NURSE ---
no reactions after initial 15 min blood transfusion. RBC continuing to infuse. vitals as documented.
--- NOTE | 2023-12-30 20:39 | PC.NURSE ---
pt refused using purewick/commode. pt ambulatory to bathroom with steady gait with .
[2023-12-30] MEDS: Acetaminophen 325 MG TABLET 975 MG PO (21:28)
--- NOTE | 2023-12-30 21:30 | PC.NURSE ---
pt reports HOLLAND onset prior to arrival. reports improved after eating food/drink water however pain still 03/31. tylenol given per oct. pt resting comfortably nad. blood infusing no reactions noted at this time. vss. call laureano within reach.
[2023-12-30 21:50] LABS: Iron 12 mcg/dL (30-160); Percent Iron Saturation 3 % (15-50); Total Iron Binding Capacity 406 mcg/dL (228-428); Unsaturated Iron Binding 394 ug/dL
--- NOTE | 2023-12-30 23:15 | PC.NURSE ---
1 rbc infused. vitals as documented. no reaction noted. pt denies cp/sob. lung sounds cta. awaiting 2nd bag rbc arrival to ed.
--- NOTE | 2023-12-30 23:23 | PC.NURSE ---
2nd rbc infusing.
--- NOTE | 2023-12-30 23:32 | PC.NURSE ---
pt reports heart palpitations. vitals stable, no changes to heart rhythm on monitor. nsr 77 bpm. resp even and unlabored. lung sounds cta. pt denies cp/sob. Dr. Vides aware; to continue with blood transfusion. pt denies discomfort.
[2023-12-31 02:42] VITALS: BP 102/42; PULSE 81; RESP 18; TEMP 36.9
[2023-12-31 02:46] VITALS: BP 102/42; PULSE 81; RESP 18; TEMP 36.7; O2SAT 98
--- NOTE | 2023-12-31 02:47 | PC.NURSE ---
2ND RBC INFUSED/ NO REACTIONS NOTED. LUNG SOUNDS CTA. VSS. DR MORRELL AWARE OF BP; PT ASYMPTOMATIC. AWAITING MOM FOR RIDE. PT VERBALIZES UNDERSTANDING D/C INSTRUCTIONS.
[2023-12-31 02:48] VITALS: BP 102/42; PULSE 81; RESP 18; TEMP 36.7; O2SAT 98
== END 2023-12-31 03:07 | disposition home or self-care (01) ==
PROVIDERS: Emergency Provider Student in an Organized Health Care Education/Training Program; PCP Internal Medicine
DX: N93.8 Other specified abnormal uterine and vaginal bleeding (principal); D50.9 Iron deficiency anemia, unspecified; R00.0 Tachycardia, unspecified; R11.0 Nausea; Z79.899 Other long term (current) drug therapy
CPT/HCPCS: 36415; 36430; 71045; 81025; 82607; 82746; 83540; 85025; 85610; 86850; 86900; 86901; 86923; 93005; 96360; 96361; 99285; P9016

== ENCOUNTER → 2023-12-30 15:17 | Outpatient (BNV) | payer OTHER, SELFPAY | PROVIDERS: Emergency Provider Student in an Organized Health Care Education/Training Program; PCP Internal Medicine; Visit Provider Internal Medicine Cardiovascular Disease | DX: R00.0 Tachycardia, unspecified (principal) | CPT/HCPCS: 93010 ==

== ENCOUNTER 2024-01-03 16:27 | Outpatient (REF) | payer OTHER, SELFPAY ==
[2024-01-03 17:53] LABS: MANUAL DIFF FLAG NO
[2024-01-03 18:06] LABS: Basophils Absolute Auto 0.1 X10*3/uL (0.0-0.2); Basophils Percent Auto 0.7 % (0-2); Eosinophils Absolute Auto 0.1 X10*3/uL (0.0-0.4); Eosinophils Percent Auto 0.4 % (0-4); Hemoglobin 8.9 g/dl (12.0-16.0); Imm Gran Abs Auto 0.08 X10*3/uL (0.00-0.03); Imm Gran Pct Auto 0.7 % (0.0-0.4); Lymphocytes Absolute Auto 3.4 X10*3/uL (1.2-4.9); Mean Corpuscular HGB Conc 30.7 g/dl (31.0-35.0); Mean Corpuscular Hemoglobin 25.4 pg (27.0-33.0); Mean Corpuscular Volume 82.9 fL (80.0-98.0); Mean Platelet Volume 12.9 fL (9.4-12.3); Monocytes Absolute Auto 0.7 X10*3/uL (0.1-1.2); Monocytes Percent Auto 6.3 % (2-11); Neutrophils Percent Auto 61.9 % (45-73); Platelet Count 232 X10*3/uL (160-400); Red Cell Distribution Width 15.4 % (11.0-16.0); White Blood Count 11.4 X10*3/uL (4.8-10.8)
[2024-01-03 18:17] LABS: Anion Gap 15 (12-20); Blood Urea Nitrogen 12 mg/dL (9-16); Calcium 9.1 mg/dL (8.4-10.2); Carbon Dioxide 22 mmol/L (22-29); Chloride 107 mmol/L (96-108); Estimated Glomerular Filt Rate > 60; Glucose Random 85 mg/dL (60-115); Potassium 4.1 mmol/L (3.3-5.1); Sodium 140 mmol/L (135-145)
== END 2024-01-03 16:28 | disposition home or self-care (01) ==
LOC: HO.HHCL 16:27
PROVIDERS: Visit Provider Emergency Medicine
DX: D50.0 Iron deficiency anemia secondary to blood loss (chronic) (principal)
CPT/HCPCS: 36415; 80048; 85025

== ENCOUNTER 2024-05-03 17:25 | Emergency (ER) | payer OTHER, SELFPAY ==
[2024-05-03 18:15] VITALS: BP 139/72; PULSE 69; RESP 16; TEMP 36.9; O2SAT 98; BMI 46.3
== END 2024-05-03 21:13 | disposition left against medical advice (07) ==
PROVIDERS: Emergency Provider Emergency Medicine; PCP Internal Medicine
DX: M79.671 Pain in right foot (principal)
CPT/HCPCS: 99281

== ENCOUNTER 2024-09-19 00:34 | Emergency (ER) | payer OTHER, SELFPAY ==
[2024-09-19 00:43] VITALS: BP 122/56; PULSE 78; RESP 17; TEMP 36.3; O2SAT 98; BMI 52.7
[2024-09-19 01:18] VITALS: O2SAT 99
--- NOTE | 2024-09-19 01:23 | PC.NURSE ---
Pt is a 19 y/o female who presents for evaluation of multiple complaints including cough, headache, nasal congestion, ear pain, weakness, body aches, dizziness, shortness of breath, chest pain, and blurry vision. Variable symptom onset ranging from 2-3 days to 3 weeks. Pt reports not feeling well, off and on X 3 weeks and verbalized concern about her anemia and thrombocytopenia status. 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 Able to speak in full sentences and an occasional dry cough is noted after placement in room. Pt denies reaching out to PCP and denies use of any OTC remedies at home for symptom management. Reports not checking her temperature at home. Ambulates with a steady gait unassisted, moving all extremities as anticipated, no increased work of breathing or signs of distress with exertion. Neuro assessment WNL. Provider aware of chest pain complaint.
--- OUTSIDE RECORDS SUMMARY | 2024-09-19 01:32 | XMS_ITS | Clinical Summary ---
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 2 Active HPV 9-valent (Gardasil 9) suspension prefilled syringe vaccine prefilled syringe apply IM once 2 Active Multiple Vitamin (Multi-Vitamin) tablet 1 tab by oral route daily 0 Active famotidine (Pepcid) 20 MG tabletIndications :Nausea Take 1 tablet (20 mg) by mouth in the morning. 30 tablet 11 3 Active Vit-Fe Fumarate-FA ( Vitamins) 28-0.8 MG tabletIndications :Family planning Take 1 tablet by mouth Once daily. 30 tablet 3 3 Active naproxen (Naprosyn) 250 MG tablet 1-2 tablest by oral route 2 times per day prn pain 10 tablet 4 Active albuterol 108 (90 Base) MCG/ACT inhalerIndication s:Mild intermittent asthma without complication Inhale 2 puffs every 6 (six) hours if needed for wheezing. 18 g 2 4 12/30/19 25 Active cetirizine (ZyrTEC) 10 MG tabletIndications :Seasonal allergies Take 1 tablet (10 mg) by mouth Once per day. 30 tablet 2 4 Active fluticasone (Flonase Allergy Relief) 50 MCG/ACT nasal sprayIndications: Seasonal allergies Administer 2 sprays into each nostril Once per day. 16 g 2 Active Ascorbic Acid (vitamin C) 250 MG tablet Take 1 tablet (250 mg) by mouth 2 times daily. Take with ferrous sulfate tablets. 60 tablet 2 4 Active Active Problems Patient Care Coordination No te Formatting of this note migh t be different from the original. C3/CM Maral Valdez RN Problem Noted Date Diagnosed Date PCOS (polycystic ovarian syndrome) 12/30/2023 Encounter for preventive health examination 12/20 Seasonal allergies 12/30/2023 Family planning 05/19/2023 Assessment & Plan (05/19/2023 3:11 PM EDT): Counseling done vitamins prescribed Hand, foot and mouth disease 03/03/2023 Assessment & Plan (03/03/2023 4:16 PM EDT): Acetaminophen PRN Drink plenty of fluids and rest Seafood allergy 02/21/2023 Assessment & Plan (02/21/2023 1:41 PM EDT): Has epi pen at home. Encounter for preventative adult health care exa mination 12/29/2022 Assessment & Plan (12/29/2022 11:42 AM EDT): Blood work ordered Iron deficiency anemia due to chronic blood loss 12/22/2022 Abnormal uterine bleeding 12/22/2022 Assessment & Plan (12/30/2023 2:46 PM EDT): I presented her case to [facility] and send patient through ambulance to the emergency room Mild intermittent asthma 07/02/2020 Assessment & Plan (05/19/2023 3:11 PM EDT): Controlled, c/w albuterol PRN Assessment & Plan (12/29/2022 11:41 AM EDT): Patient educated to avoid asthma triggers Obesity 05/16/2019 Assessment & Plan (12/29/2022 11:42 AM EDT): Today discussion was done about life style modifications I advise healthy diet (low calorie) and cardiovascular exercise Thrombocytopenic disorder 07/02/2016 Assessment & Plan (05/19/2023 3:11 PM EDT): CBC ordered for monitoring I advise to continue to follow with hematology and to inform them she will like to get Assessment & Plan (02/21/2023 1:41 PM EDT): 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 Nicole asked her to call her hall director to request status of the referral. Assessment & Plan (12/29/2022 11:41 AM EDT): CBC will be check with labs Allergic rhinitis 07/02/2016 Immunizations Name Administration Dates Next Due DTaP 02/17/2005,06/10/2004,03/24/2004 DTaP, 5 pertussis antigens 2003 HPV 9-Valent 08/11/2017,05/17/2016 Hep A, ped/adol, 2 dose 08/11/2017,05/17/2016 Hep B, Adolescent or Pediatric 03/24/2004,2003,2003 HiB, unspecified 02/17/2005,03/24/2004, 4 Hib (PRP-T) 2003 IPV 05/17/2016, 4,01/08/2004,07/30 Influenza injectable quadriv alent preservative free 05/19/2023,08/29/2018,07/02/2016 Influenza, injectable, quadr ivalent, preservative free, pediatric 10/02/2015 MMR 06/02/2007,06/10/2004 Meningococcal MCV4P ACYW-135 02/21/2020,05/17/20 16 TD (adult), 2 Lf tetanus tox oid, preservative free, adsorbed 05/17/2016 Tdap 05/17/2016 Varicella 05/17/2016,06/10/2004 Social History Tobacco Use Types Packs/Day Years Used Date Smoking Tobacco: Former Cigarettes Passive Smoke Exposure: Past Smokeless Tobacco: Never Tobacco Cessation:Counseling Given: Not Answered Depression Answer Date Recorded Patient Health Questionnaire-9 Score 0 12/29/2022 Housing Stability Answer Date Recorded What is your housing situation today? I do not have housing (Staying with others, in a hotel, in a nursing home, living outside on the street, on a beach, in a car, or in a park 12/22/[address] you li ve. Do you have problems with any of the following? None of the above 12/22/2023 Food Insecurity Answer Date Recorded Within the past 12 months, y ou worried that your food would run out before you got money to buy more: Never True 06/27/2023 Within the past 12 months,th e food you bought just didn't last and you didn't have enough money to get more: Never True 01/2023 Transportation Answer Date Recorded In the past 12 months, has l ack of transportation kept you from medical appts, meetings, work or from getting things needed for daily living? Yes, it has kept me from non-medical meetings, work, or getting things that I need 12/22/2023 Utilities Answer Date Recorded In the past 12 months, has t he electric, gas, oil or water company threatened to shut off services in your home? No 06/27/2023 Depression Answer Date Recorded Patient Health Questionnaire-2 Score 0 12/29/2022 Comments Unknown Sex and Gender Information Value Date Recorded Sex Assigned at Female 06/21/2022 10:30 AM EDT Legal Sex Female 10:30 AM EDT Gender Identity Female 06/21/2022 10:30 AM EDT Sexual Orientation Straight 06/21/2022 10 :30 AM EDT Last Filed Vital Signs Vital Sign Reading Time Taken Comments Blood Pressure 133/70 01/03/2024 3:02 PM EDT Pulse 87 01/03/2024 3:02 PM EDT Temperature 36.4 ??C (97.6 ??F) 01/03/2024 3:02 PM ED T Respiratory Rate 16 01/03/2024 3:02 PM EDT Oxygen Saturation 97% 01/03/2024 3:02 PM EDT Inhaled Oxygen Concentration - - Weight 122 kg (268 lb 3.2 oz) 01/03/2024 3:02 PM EDT Height 162.6 cm (5' 4 ) 12/30/2023 2:03 PM EDT Body Mass Index 46.04 12/30/2023 2:03 PM EDT Plan of Treatment Health Maintenance Due Date Last Done Comments Pneumococcal Vaccine: Pediatrics (0 to 5 Years) and At-Risk Patients (6 to 49) Years) (1 of 2 - PCV) 2009 Alcohol/Substance Use Screening 2015 Family Planning (PISQ) 2018 Depression Screening 12/30/2023 12/29/2022, 12/30/19 23 COVID-19 Vaccine ( season) 2024 Influenza Vaccine (#1) 2024 , 08/29/2018, 07/02/2016, Additional history exists Chlamydia and Gonorrhea Screening 05/19/2024 05/19/2023, 09/28/2021, 08/03/2021 Pap Smear 2024 SDOH Screening 12/21/2024 12/22/2023 Tobacco Screening 01/02/2025 01/03/2024 DTaP/Tdap/Td Vaccines (7 - Td or Tdap) 05/17/2026 05/17/2016, 05/17/2016, 02/17/2005, Additional history exists Lipid Panel 12/31/2027 12/30/2022 Zoster Vaccines (1 of 2) 2053 RSV Patients and Patients Aged 60 years or older (1 - 1-dose 75+ series) 2078 Hepatitis B Vaccines Completed 03/24/2004, 01/08/2004, 2003 HIB Vaccines Completed 02/17/2005, 10/2003, 01/08/2004, Additional history exists IPV Vaccines Completed 05/17/2016, 10/2003, 01/08/2004, Additional history exists HPV Vaccines Completed 08/11/2017, 05/17/2016 Hepatitis A Vaccines Completed 08/11/2017, 05/17/20 16 Meningococcal Vaccine Completed 02/21/2020, 016 HIV Screening Completed 05/19/2023, 09/28/2021 Hepatitis C Screening Completed 05/19/2023 RSV under 20 months Aged Out No longe r eligible based on patient's age to complete this topic Rotavirus Vaccines Aged Out No longer eligible based on patient's age to complete this topic Procedures Procedure Name Priority Date/Time Associated Diagnosis Comments HEPATITIS C AB W/REFL TO HCV RNA, QN, PCR Routine 05/19/2023 11:26 AM EDT Family planning HIV ANTIBODY/ANTIGEN ([place] DPH) Routine 05/19/2023 11:26 AM EDT CHLAMYDIA/N. GONORRHOEAE RNA, TMA, UROGENITAL Routine 05/19/2023 11:26 AM EDT Family planning LIPID PANEL, STANDARD Routine 12/30/2022 8:53 AM EDT Encounter for preventative adult health care examination from Last 3 Months or Most Recently Relevant to Health Maintenance Results * HIV Ab/Ag ([place] DPH) (05/19/2023 11:26 AM EDT) [facility] HIV AB/AG Nonreactive Nonreactive [facility] Comment:HIV-1 p24 Ag and/or HIV-1/HIV-2 Ab not detected.A test result that is nonreactive does not exclude thepossibility of exposure to or infection with HIV-1 and/orHIV-2. Nonreactive results in this assay for individualswith prior exposure to HIV-1 and/or HIV-2 may be due toantigen and antibody levels that are below the limit ofdetection of this assay.The [employer] HIV Ag/Ab Combo assay result andsupplemental assay results should be interpreted inconjunction with the patient's clinical presentation,history and other laboratory results. If the results areinconsistent with clinical evidence, additional testing issuggested to confirm the result. 05/19/2023 11:2 6 AM EDT 05/19/2023 12:56 PM EDT us Alayna Rodriguez MD LAB BLOOD ORDERABLES Final Result [facility] [address] [place] [phone] * Hepatitis C Antibody with Reflex to HCV, RNA, Quantitative, Real-Time PCR (05/19/2023 11:26 AM EDT) Hepatitis C Antibody Nonreactive Nonreactive [facility] Comment:Antibodies to HCV no t detected; does not exclude early acuteHCV infection. Blood Venous blood specimen / Unknown 05/19/2023 11:26 AM EDT 05/19/2023 12:56 PM EDT Alayna Rodriguez MD LAB BLOOD ORDERABLES Final Result Performing Organization Address [facility] Co de Phone Number [facility] [address] [place] [address] [phone] * Chlamydia/N. Gonorrhoeae RNA, TMA, Urogenitial (05/19/2023 11:26 AM EDT) [facility] CT PCR NOT DETECTED Not Detect. [facility] Comment:A not detected test result does not exclude the possibilityof infection because test results can be affected byimproper specimen collection, concurrent antibiotic therapy,or the number of organisms in the specimen which may bebelow the sensitivity of the test. As with many diagnostictests, results from the Xpert CT/NG assay should beinterpreted in conjunction with other laboratory andclinical data available to the clinician.Xpert CT/NG performance has not been evaluated in patientsless than 14 years of age. The assay should not be used forthe evaluationof suspected sexual abuse or for other medico-legalindications. Additional testing is recommended in anycircumstance when false positive or false negative resultscould lead to adverse medical, social or psychologicalconsequences. NG PCR NOT DETECTED Not Detect. [facility] Comment:A not detected test result does not exclude the possibilityof infection because test results can be affected byimproper specimen collection, concurrent antibiotic therapy,or the number of organisms in the specimen which may bebelow the sensitivity of the test. As with many diagnostictests, results from the Xpert CT/NG assay should beinterpreted in conjunction with other laboratory andclinical data available to the clinician.Xpert CT/NG performance has not been evaluated in patientsless than 14 years of age. The assay should not be used forthe evaluationof suspected sexual abuse or for other medico-legalindications. Additional testing is recommended in anycircumstance when false positive or false negative resultscould lead to adverse medical, social or psychologicalconsequences. Urine (Urine, Random) 05/19/2023 11:26 AM EDT 05/19/2023 1:01 PM EDT Narrative [facility] - 05/19/2023 4:51 PM EDT Urine Alayna Rodriguez MD LAB MICROBIOLOGY - [employer] NERAL ORDERABLES Final Result [facility] [address] [place] [phone] * (ABNORMAL) Lipid Panel, Standard (12/30/2022 8:53 AM EDT) Cholesterol, Total 226(H) <170 mg/dL [facility] [employer] [facility] HDL Cholesterol 46 >45 mg/dL [facility] [employer] [place] [facility] Triglycerides 119(H) <90 mg/dL [facility] LDL Cholesterol 156(H) <110 mg/dL (calc) [facility] Comment: LDL-C is now calculated using the Mikel-Rj calculation, which is a validated novel method providing better accuracy than the Friedewald equation in the estimation of LDL-C. Mikel PEPPER et al. MERCEDES. 2013;310(19): 5758-1172 (http://education.[employer]/faq/WAJ685) Chol/HDLC Ratio 4.9 <5.0 (calc) [facility] Non-HDL Cholesterol 180(H) <120 mg/dL (calc) [facility] Comment: For patients with diabetes plus 1 major ASCVD risk factor, treating to a non-HDL-C goal of <100 mg/dL (LDL-C of <70 mg/dL) is considered a therapeutic option. 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
--- OUTSIDE RECORDS SUMMARY | 2024-09-19 01:32 | XMS_ITS | Clinical Summary ---
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 Name Role Phone Unavailable Primary Care Provider Unavailabl e Social History Tobacco Use Types Packs/Day Years Used Date Smoking Tobacco: Never Assessed Sex and Gender Information Value Date Recorded Sex Assigned at Not on file Gender Identity Not on file Sexual Orientation Not on file Plan of Treatment Health Maintenance Due Date Last Done Comments Gonorrhea/Chlamydia Screening 2003 HPV Vaccines (1 - 3-dose series) 2018 DTaP,Tdap,and Td Vaccines (1 - Tdap) 2022 Hepatitis B Vaccines (1 of 3 - 19+ 3-dose series) 2022 Annual Well Child Visit (3-2 1 years old) 09/16/2023 Depression Screening 09/16/2023 HIV Screening 09/16/2023 Hepatitis C Screening 09/16/2023 Social Influencers of Health Screening 09/16/2023 COVID-19 Vaccine ( - 2023-2 5 season) 2024 Influenza Vaccine (#1) 2024 Cervical Cancer Screening: P ap Smear 2024 HIB Vaccines Aged Out No longer eligi ble based on patient's age to complete this topic Hepatitis A Vaccines Aged Out No long er eligible based on patient's age to complete this topic IPV Vaccines Aged Out No longer eligi ble based on patient's age to complete this topic MMR Vaccines Aged Out No longer eligi ble based on patient's age to complete this topic Meningococcal ACWY Vaccine Aged Out N o longer eligible based on patient's age to complete this topic Pneumococcal Vaccine: Pediat rics (0 to 5 Years) and At-Risk Patients (6 to 64 Years) Aged Out No longer eligible b ased on patient's age to complete this topic RSV Immunization Patients Un remi 20 months Aged Out No longer eligible b ased on patient's age to complete this topic Varicella Vaccines Aged Out No longer eligible based on patient's age to complete this topic
[2024-09-19 01:43] LABS: Eosinophils Absolute Auto 0.1 X10*3/uL (0.0-0.4); Eosinophils Percent Auto 0.4 % (0-4); Imm Gran Abs Auto 0.14 X10*3/uL (0.00-0.03); MANUAL DIFF FLAG SCAN; Mean Corpuscular HGB Conc 32.7 g/dl (31.0-35.0); Red Cell Distribution Width 12.7 % (11.0-16.0); SCAN SMEAR FLAG 1
[2024-09-19 01:45] LABS: Basophils Absolute Auto 0.1 X10*3/uL (0.0-0.2); Basophils Percent Auto 0.6 % (0-2); Hemoglobin 13.4 g/dl (12.0-16.0); Lymphocytes Absolute Auto 2.8 X10*3/uL (1.2-4.9); Lymphocytes Percent Auto 20.4 % (20-40); Mean Corpuscular Hemoglobin 27.2 pg (27.0-33.0); Mean Corpuscular Volume 83.2 fL (80.0-98.0); Mean Platelet Volume 14.9 fL (9.4-12.3); Monocytes Absolute Auto 0.8 X10*3/uL (0.1-1.2); Neutrophils Absolute Auto 9.6 x10*3/uL (2.0-8.3); Neutrophils Percent Auto 71.6 % (45-73); Red Blood Count 4.93 X10*6/uL (4.20-5.50); White Blood Count 13.5 X10*3/uL (4.8-10.8)
[2024-09-19 02:02] LABS: Alanine Aminotransferase 25 U/L (0-31); Albumin Level 4.2 g/dL (3.5-5.0); Alkaline Phosphatase 69 U/L (39-117); Anion Gap 13 (12-20); Aspartate Amino Transferase 25 U/L (5-31); Bilirubin Total 0.3 mg/dL (0.0-1.0); Blood Urea Nitrogen 12 mg/dL (9-16); Calcium 9.5 mg/dL (8.4-10.2); Carbon Dioxide 22 mmol/L (22-29); Chloride 107 mmol/L (96-108); Estimated Glomerular Filt Rate > 60; Glucose Random 86 mg/dL (60-115); Potassium 3.8 mmol/L (3.3-5.1); Sodium 138 mmol/L (135-145); Total Protein 7.8 g/dL (6.5-8.0)
[2024-09-19 02:19] LABS: Influenza A PCR NEGATIVE (Negative); Influenza B PCR NEGATIVE (Negative); Resp Syncy Virus RNA Qual PCR NEGATIVE (Negative); SARS COV2 PCR INHOUSE NEGATIVE (Negative)
--- NOTE | 2024-09-19 02:20 | ED_ITS ---
HPI - General Adult General Chief complaint: Upper Respiratory Symptoms Stated complaint: resp symptoms Time Seen by Provider: 09/19/24 02:20 History of Present Illness ED Provider: Yuridia CID narrative: The patient is a 19-year-old female who has not felt well for the last 3 weeks. She has had a variety of symptoms including runny nose, cough, congestion, sore throat, and body aches. These symptoms has been waxing and waning. The patient also has a history of thrombocytopenia. Today she had some bleeding from her nose and this is what prompted her to come to the emergency room tonight. The patient says that she has had sufficient bleeding problems in the past that she has required a transfusion. Related Data Home Medications ?Medication ?Instructions ?Recorded ?Confirmed epinephrine 0.3 mg/0.3 mL 0.3 ml IM DIRECTED 08/05/22 08/05/22 injection, auto-injector (EpiPen) Previous Rx's ?Medication ?Instructions ?Recorded ibuprofen 600 mg tablet 600 mg PO Q8H PRN pain #20 tabs 02/07/21 ferrous sulfate 325 mg (65 mg 325 mg PO BID #60 tabs 08/05/22 iron) tablet cetirizine 10 mg tablet 10 mg PO DAILY PRN allergy 02/24/23 symptoms #14 tabs permethrin 5 % topical cream 1 appl topical Q14D 2 doses #60 02/24/23 grams prednisone 20 mg tablet 60 mg (3 x 20 mg) PO DAILY 3 days 02/24/23 #9 tabs azithromycin 250 mg tablet 250 mg PO DAILY 4 days #4 tabs 09/19/24 Allergies Allergy/AdvReac Type Severity Reaction Status Date / Time shrimp [SHRIMP] Allergy Unknown ANGIOEDEMA Verified 09/19/24 00:45 Review of Systems 2 Review of Systems: Yes all other systems are reviewed and are negative [facility] Past Medical History Medical History Asthma Thrombocytopenia Family History Family History (Updated 08/05/22 @ 08:30 by Meredith Lisa) Maternal Grandfather Heart disease Mother Stroke Paternal Grandfather Diabetes Paternal Aunt Obesity Other H/O heart bypass surgery Social History Social History (Updated 08/05/22 @ 08:31 by Meredith Lisa) Household Members: [facility] Alcohol intake: never Patient Tobacco Use Status: Never used Tobacco Substance Use Type: Marijuana Advance Directives: No Advance Directives Information Provided: Yes Do you have a plan to hurt others: No Plan Patient : No service: No Current occupational status: employed Current occupation: rt handed[employer] Physical Exam ED Vital Signs: Vital Signs - 24 hr 09/19/24 00:43 09/19/24 01:18 Temperature 97.3 F Pulse Rate 78 Respiratory Rate 17 Blood Pressure 122/56 L Pulse Oximetry 98 99 Oxygen Delivery Method Room Air Room Air BMI result Body Mass Index 52.7 Const Other: The patient is awake and alert. The patient is pleasant and cooperative. The patient looks somewhat run down HENMT Other: Face is symmetrical. There is no blood in the nares. The posterior pharynx showed some large tonsils but without exudate or significant erythema. There were some streaks of blood in the posterior pharynx but this did not appeared to be acute and there did not seem to be a signs of ongoing bleeding. Eyes General: appearance normal, both eyes and all related structures Neck Neck: Yes full ROM and Yes no lymphadenopathy Resp Effort & Inspection: normal respiratory effort Auscultation: clear to auscultation bilaterally Cardio Rate: regular rate Rhythm: regular rhythm Heart sounds: S1 normal heart sound present and S2 normal heart sound present GI Other: Abdomen was soft and nontender Skin Other: Skin is dry and unremarkable, no rash or lesions Neuro Other: The patient is awake and alert with a normal mental status. Cranial nerves are intact. She moves her extremities normally and appropriately. Extrem Other: No peripheral edema Medications Administered Discontinued Medications Generic Name Dose Route Start Last Admin Trade Name Jovanna PRN Reason Stop Dose Admin Acetaminophen 975 mg 09/19/24 03:37 09/19/24 04:11 Acetaminophen 325 Mg Tablet PO 09/19/24 03:38 975 mg ONCE ONE Administration Azithromycin 500 mg 09/19/24 03:38 09/19/24 04:11 Azithromycin 500 Mg Tablet PO 09/19/24 03:39 500 mg ONCE ONE Administration Ibuprofen 400 mg 09/19/24 03:37 09/19/24 04:11 Ibuprofen 400 Mg Tablet PO 09/19/24 03:38 400 mg ONCE ONE Administration Medical Decision Making Medical Decision Making MDM Narrative: The patient is a 19-year-old female with a history of thrombocytopenia 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 She also has a history of asthma. She presents with a respiratory symptoms. She had had some nasal bleeding earlier but there was no ongoing bleeding. The patient has a CBC with a white count of 13.5, hemoglobin 13.4 [place] [address]. Differential on the white count shows 71% neutrophils and 20% lymphocytes. Metabolic testing is unremarkable. is negative. Chest x-ray is negative. Viral testing for COVID, influenza, and RSV is negative. My overall impression is that this patient with thrombocytopenia and asthma probably has some degree of bronchitis. She will be placed on a course of azithromycin. She looked well. She should follow up with her PCP. Given the drop in her platelet count she should follow up again with her software engineer intern. Lab Data 09/19/24 01:35 09/19/24 01:35 Labs: Lab Results 09/19/24 09/19/24 Range/Units 01:35 02:31 WBC 13.5 H (4.8-10.8) X10*3/uL RBC 4.93 D (4.20-5.50) X10*6/uL Hgb 13.4 D (12.0-16.0) g/dl Hct 41.0 D (37.0-47.0) % MCV 83.2 (80.0-98.0) fL MCH 27.2 (27.0-33.0) pg MCHC 32.7 (31.0-35.0) g/dl RDW 12.7 (11.0-16.0) % Plt Count 53 L D (160-400) X10*3/uL MPV 14.9 H (9.4-12.3) fL Immature Gran % (Auto) 1.0 H (0.0-0.4) % Neut % (Auto) 71.6 (45-73) % Lymph % (Auto) 20.4 (20-40) % [place] % (Auto) 6.0 (2-11) % Eos % (Auto) 0.4 (0-4) % Baso % (Auto) 0.6 (0-2) % Lymph # (Auto) 2.8 (1.2-4.9) X10*3/uL [place] # (Auto) 0.8 (0.1-1.2) X10*3/uL Eos # (Auto) 0.1 (0.0-0.4) X10*3/uL Baso # (Auto) 0.1 (0.0-0.2) X10*3/uL Abs Immat Gran (auto) 0.14 H (0.00-0.03) X10*3/uL Absolute Neuts (auto) 9.6 H (2.0-8.3) x10*3/uL Absolute Nucleated RBC 0.000 (0.0-0.012) X10*3/uL Nucleated RBC % (auto) 0.0 (0.0-0.2) /100WBC Smear Tech's Comments VERIFIED Sodium 138 (135-145) mmol/L Potassium 3.8 (3.3-5.1) mmol/L Chloride 107 (96-108) mmol/L Carbon Dioxide 22 (22-29) mmol/L Anion Gap 13 (12-20) BUN 12 (9-16) mg/dL Creatinine 0.61 (0.5-1.4) mg/dL Estim Creat Clear Calc 204.0 Estimated GFR > 60 Random Glucose 86 (60-115) mg/dL Calcium 9.5 (8.4-10.2) mg/dL Total Bilirubin 0.3 (0.0-1.0) mg/dL AST 25 (5-31) U/L ALT 25 (0-31) U/L Alkaline Phosphatase 69 (39-117) U/L Total Protein 7.8 (6.5-8.0) g/dL Albumin 4.2 (3.5-5.0) g/dL Beta HCG, Quant < 2 mIU/mL Influenza Type A (PCR) NEGATIVE (Negative) Influenza Type B (PCR) NEGATIVE (Negative) RSV RNA Qual (PCR) NEGATIVE (Negative) SARS-CoV-2 RNA (RT-PCR) NEGATIVE (Negative) S. pyogenes GrpA JUAN Negative (Negative) Discharge Plan Discharge Clinical Impression: Asthmatic bronchitis, Thrombocytopenia Patient Disposition: Home, Self-Care Additional Instructions: Your chest x-ray today shows no pneumonia. Your throat swab for strep throat has tested negative. Your viral swab has tested negative for COVID, influenza, and RSV. Please take the antibiotic azithromycin once a day as prescribed. Drink a lot of fluids. Rest today on . I am hoping you will be well enough to return to work on Tuesday. Please plan on following up with your regular doctor. I think it would also be good for you to re-contact your software engineer intern to discuss your low platelet count. Your platelet count today was 53 (53,000). Return to the emergency room if you feel significantly worse. Prescriptions: New azithromycin 250 mg tablet 250 mg PO DAILY 4 Days Qty: 4 0RF Rx Instructions: start on day 2 of therapy No Action ibuprofen 600 mg tablet 600 mg PO Q8H PRN (Reason: pain) Qty: 20 0RF epinephrine [EpiPen] 0.3 mg/0.3 mL auto-injector 0.3 ml IM DIRECTED ferrous sulfate 325 mg (65 mg iron) Tablet 325 mg PO BID Qty: 60 3RF prednisone 20 mg tablet 60 mg PO DAILY 3 Days Qty: 9 0RF cetirizine 10 mg tablet 10 mg PO DAILY PRN (Reason: allergy symptoms) Qty: 14 0RF permethrin 5 % cream 1 appl topical Q14D Qty: 60 0RF Rx Instructions: apply second treatment 14 days from neck to bottom of feet, leave on 10 hours then shower Referrals: Alayna Krishna MD [Primary Care Provider] - (respiratory infection, thrombocytopenia) Qing Rdz MD [Physician] - (Thrombocytopenia, platelet count 53,000) Stand Alone Forms: Work/School Release Interventions: ED Discharge Assessment Last Done: 09/19/24 04:21 Discharge Date/Time: 09/19/24 04:17 Print Language: Kazakh
[2024-09-19 02:21] LABS: PLT ABN DIST 1; Platelet Count 53 X10*3/uL (160-400)
[2024-09-19 02:22] LABS: SLIDE REVIEW VERIFIED
[2024-09-19 02:56] LABS: IDNOW Serial# 6674DD1D; Strep A Nucleic Acid Negative (Negative)
[2024-09-19 03:55] LABS: HCG Quantitative < 2 mIU/mL
[2024-09-19] MEDS: Azithromycin 500 MG TABLET PO (04:11)
[2024-09-19] MEDS: Ibuprofen 400 MG TABLET PO (04:11)
[2024-09-19] MEDS: Acetaminophen 325 MG TABLET 975 MG PO (04:11)
[2024-09-19 04:21] VITALS: BP 126/70; PULSE 82; RESP 16; TEMP 36.9; O2SAT 97
== END 2024-09-19 04:17 | disposition home or self-care (01) ==
PROVIDERS: Emergency Provider Emergency Medicine; PCP Internal Medicine
DX: J45.998 Other asthma (principal); D69.6 Thrombocytopenia, unspecified; J02.9 Acute pharyngitis, unspecified; R05.9 Cough, unspecified; M79.10 Myalgia, unspecified site; Z03.818 Encounter for observation for suspected exposure to other biological agents ruled out
CPT/HCPCS: 0241U; 80053; 84702; 85025; 87651; 99283; 99284

== ENCOUNTER 2025-03-08 17:39 | Outpatient (REF) | payer MEDICAID, SELFPAY ==
--- OUTSIDE RECORDS SUMMARY | 2025-03-08 17:42 | XMS_ITS | Clinical Summary ---
Author Organization [facility] it Address [address] [place] [address] Care Team Providers Care Network Design Architect Name Role Phone Unavailable Primary Care Provider Unavailabl e Social History Tobacco Use Types Packs/Day Years Used Date Smoking Tobacco: Never Assessed Comments Unknown Sex and Gender Information Value Date Recorded Sex Assigned at Not on file Legal Sex Female 8:28 PM EST Gender Identity Not on file Sexual Orientation Not on file Plan of Treatment Health Maintenance Due Date Last Done Comments Gonorrhea/Chlamydia Screening 2003 HPV Vaccines (1 - 3-dose series) 2018 Meningococcal B Vaccine (1 o f 2 - Standard) 2019 DTaP,Tdap,and Td Vaccines (1 - Tdap) 2022 Hepatitis B Vaccines (1 of 3 - 19+ 3-dose series) 2022 Annual Well Child Visit (3-2 1 years old) 09/16/2023 HIV Screening 09/16/2023 Hepatitis C Screening 09/16/2023 Social Influencers of Health Screening 09/16/2023 COVID-19 Vaccine (1 - 2023-2 5 season) 2024 Cervical Cancer Screening: P ap Smear 2024 Depression Screening 08/22/2024 Influenza Vaccine (#1) 2025 HIB Vaccines Aged Out No longer eligi [...] 5 Years) and At-Risk Patients (6 to 49 Years) Aged Out No longer eligible b ased on patient's age to complete this topic RSV Immunization Patients Un remi 20 months Aged Out No longer eligible b ased on patient's age to complete this topic Varicella Vaccines Aged Out No longer eligible based on patient's age to complete this topic
--- OUTSIDE RECORDS SUMMARY | 2025-03-08 17:42 | XMS_ITS | Clinical Summary ---
Author Organization [employer] Address [address] [place] [address] Care Team Providers Care Organic Search Lead Name Role Phone Alayna Krishna MD Primary [...] needed for wheezing. 18 g 2 4 Active cetirizine (ZyrTEC) 10 MG tabletIndications :Seasonal allergies Take 1 tablet (10 mg) by mouth Once per day. 30 tablet 2 4 Active fluticasone (Flonase Allergy Relief) 50 MCG/ACT nasal sprayIndications: Seasonal allergies Administer 2 sprays into each nostril Once per day. 16 g 2 4 Active Ascorbic Acid (vitamin C) 250 MG tablet Take 1 tablet (250 mg) by mouth 2 times daily. Take with ferrous sulfate tablets. 60 tablet 2 4 Active cetirizine (ZyrTEC) 10 MG tabletIndications :Seasonal allergies Take 1 tablet (10 mg) by mouth Once per day. 30 tablet 11 5 01/02/20 26 Active fluticasone (Flonase) 50 MCG/ACT nasal sprayIndications: Seasonal allergies Administer 1 spray into each nostril Once per day. Shake gently. Before first use, prime pump. After use, clean tip and replace cap. 16 g 2 5 01/02/20 26 Active Active Problems Patient Care Coordination No te Formatting of this note migh t be different from the original. C3/CM Maral Valdez RN Problem Noted Date Diagnosed Date Encounter for Papanicolaou smear of cervix 03/08 Assessment & Plan (03/08/2025 4:41 PM EDT): Pelvis exam and PA done, patient will be contacted with results Diminished vision 01/01/2025 PCOS (polycystic ovarian syndrome) 12/30/2023 Encounter for [...] care exa mination 12/29/2022 Assessment & Plan (01/01/2025 5:16 PM EDT): See HPI Assessment & Plan (12/29/2022 11:42 AM EDT): Blood work ordered Iron deficiency anemia due to chronic blood loss 12/22/2022 Abnormal uterine bleeding 12/22/2022 Assessment & Plan (12/30/2023 2:46 PM EDT): I presented her case to [facility] and send patient through ambulance to the [...] adults. Nicole asked her to call her mold mechanic to request status of the referral. Assessment & Plan (12/29/2022 11:41 AM EDT): CBC will be check with labs Allergic rhinitis 07/02/2016 Encounters Date Type Department Care Team Description 03/08/2025 2:00 PM EDT Procedure [facility] [address] [place] [address] Alayna Krishna MD Encounter for Papanicolaou smear of cervix 03/08/2025 Travel 03/07/[address] [address] Alayna Krishna MD Chart Prep 01/01/2025 2:45 PM EDT Office Visit [address] [address] Alayna Krishna MD Encounter for preventative adult health care examination (Primary Dx); Abnormal uterine bleeding; Iron deficiency anemia due to chronic blood loss; Seasonal allergies; Diminished vision 01/01/2025 Travel 12/31/[address] [address] Alayna Krishna MD telephone call 12/31/[address] [address] Alayna Krishna MD Chart Prep 12/25/2024 Patient Outreach [address] [address] Alayna Krishna MD Care Coordination ([facility] outreach for SDOH food needs-referral completed /) 12/25/2024 Patient Outreach [address] [address] Alayna Krishna MD Pre-visit Planning (SDOH screening positive and Tobacco screening negative) from Last 3 Months Immunizations Immunization Administration Dates Next Due DTaP 02/17/2005,06/10/2004,03/24/2004 DTaP, [...] Date Recorded Patient Health Questionnaire-9 Score 0 01/01/2025 Patient Health Questionnaire-9 Score 0 01/01/2025 Last PHQ-9: Questionnaire Data Not on file 0 01/01/2025 Housing Stability Answer Date Recorded What is your housing situation today? I have svetlana rice 12/25/[address] you li ve. Do you have problems with any of the following? Mold 12/25/2024 Food Insecurity Answer Date Recorded Within the past 12 months, y ou worried that your food would run out before you got money to buy more: Never True 12/25/2024 Within the past 12 months,th e food you bought just didn't last and you didn't have enough money to get more: Never True 01/2025 Transportation Answer Date Recorded In the past 12 months, has l ack of transportation kept you from medical appts, meetings, work or from getting things needed for daily living? Yes, it has kept me from medical appointments or getting medications. 12/25/2024 Utilities Answer Date Recorded In the past 12 months, has t he [employer], gas, oil or water [employer] threatened to shut off services in your home? No 12/25/2024 Depression Answer Date Recorded Patient Health Questionnaire-2 Score 0 01/01/2025 Internet Access Answer Date Recorded Internet Access Q1 Yes 12/25/2024 Internet Access Q2 Not on file 12/25/2024 Comments Unknown Sex and Gender Information Value Date Recorded Sex Assigned at Female 06/21/2022 10:30 AM EDT Legal Sex Female 10:30 AM EDT Gender Identity Female 06/21/2022 10:30 AM EDT Sexual Orientation Straight 06/21/2022 10 :30 AM EDT Last Filed Vital Signs Vital Sign Reading Time Taken Comments Blood Pressure 132/82 03/08/2025 1:48 PM EDT Pulse 85 03/08/2025 1:48 PM EDT Temperature 36.7 C (98 F) 03/08/2025 1:48 PM EDT Respiratory Rate 20 03/08/2025 1:48 PM EDT Oxygen Saturation 98% 03/08/2025 1:48 PM EDT Inhaled Oxygen Concentration - - Weight 129 kg (285 lb 3.2 oz) 03/08/2025 1:48 PM EDT Height 162.6 cm (5' 4 ) 03/08/2025 1:48 PM EDT Body Mass Index 48.95 03/08/2025 1:48 PM EDT Plan of Treatment Upcoming Encounters Date Type Department Care Team (Late st Contact Info) Description 03/26/2025 1:45 PM EDT Office Visit [facility] [address] [place], [place] [phone] Sheeba Isaac, OD [address] [place] [address] Health Maintenance Due Date Last Done Comments Alcohol/Substance Use Screening 2015 Family Planning (PISQ) 2018 Meningococcal B Vaccine (1 of 2 - Standard) 2019 Pneumococcal Vaccine: Pediatrics (0 to 5 Years) and At-Risk Patients (6 to 49) Years (1 of 2 - PCV) 2022 COVID-19 Vaccine ( season) 2024 Chlamydia and Gonorrhea Screening 05/19/2024 05/19/2023, 09/28/2021, 08/03/2021 Pap Smear 2024 Influenza Vaccine (#1) 2025 , 05/19/2023, 08/29/2018, Additional history exists SDOH Screening 12/25/2025 12/25/2024 Depression Screening 01/01/2026 01/01/2025, 01/02/20 25 Disability Screening 03/08/2026 03/08/2025 Tobacco Screening 03/08/2026 03/08/2025 Lipid Panel 12/31/2027 12/30/2022 DTaP/Tdap/Td Vaccines (8 - Td or Tdap) 08/10/2034 08/10/2024, 05/17/2016, 05/17/2016, Additional history exists Zoster Vaccines (1 of 2) 2053 RSV Patients and Patients Aged 60 years or older (1 - 1-dose 75+ series) 2078 HIB Vaccines Completed 02/17/2005, 10/2003, 01/08/2004, Additional history exists IPV Vaccines Completed 05/17/2016, 10/2003, 01/08/2004, Additional history exists HPV Vaccines Completed 08/11/2017, 05/17/2016 Hepatitis A Vaccines Completed 08/11/2017, 05/17/20 16 Meningococcal Vaccine Completed 02/21/2020, 016 HIV Screening Completed 05/19/2023, 09/28/2021 Hepatitis C Screening Completed 05/19/2023 Hepatitis B Vaccines Completed 08/13/2024, 03/24/2004, 01/08/2004, Additional history exists RSV under 20 months Aged Out No [...] Ab/Ag ([place] DPH) (05/19/2023 11:26 AM EDT) HIV AB/AG Nonreactive Nonreactive [facility] Comment:HIV-1 p24 Ag and/or HIV-1/HIV-2 Ab not detected.A test result that is nonreactive does not exclude thepossibility of exposure to or infection with HIV-1 and/orHIV-2. Nonreactive results in this assay for individualswith prior exposure to HIV-1 and/or HIV-2 may be due toantigen and antibody levels that are below the limit ofdetection of this assay.The BackType HIV Ag/Ab Combo assay result andsupplemental assay results should be interpreted inconjunction with the patient's clinical presentation,history and other laboratory results. If the results areinconsistent with clinical evidence, additional testing issuggested to confirm the result. 05/19/2023 11:2 6 AM EDT 05/19/2023 12:56 PM EDT us Alayna Rodriguez MD LAB BLOOD ORDERABLES Final Result Performing Organization Address [facility] Co de Phone Number [facility] [address] [place] [phone] * Hepatitis C Antibody with Reflex to HCV, RNA, Quantitative, Real-Time PCR (05/19/2023 11:26 AM EDT) [facility] Hepatitis C Antibody Nonreactive Nonreactive [facility] Comment:Antibodies to HCV no t detected; does not exclude early acuteHCV infection. Blood Venous blood specimen / Unknown 05/19/2023 11:26 AM EDT 05/19/2023 12:56 PM EDT us Alayna Rodriguez MD LAB BLOOD ORDERABLES Final Result Performing Organization Address [facility] Co de Phone Number [facility] [address] [place] [phone] * Chlamydia/N. Gonorrhoeae RNA, TMA, Urogenitial (05/19/2023 11:26 AM EDT) [facility] CT PCR NOT DETECTED Not Detect. [facility] Comment:A not detected test result does [...] psychologicalconsequences. NG PCR NOT DETECTED Not Detect. [facility] Comment:A not detected test result does [...] AM EDT 05/19/2023 1:01 PM EDT Narrative [facility] - 05/19/2023 4:51 PM EDT Urine us Alayna Rodriguez MD LAB MICROBIOLOGY - [facility] ORDERABLES Final Result [facility] [address] [place] [phone] * (ABNORMAL) Lipid Panel, Standard (12/30/2022 8:53 AM EDT) Cholesterol, Total 226(H) <170 mg/dL [facility] HDL Cholesterol 46 >45 mg/dL [facility] Triglycerides 119(H) <90 mg/dL [facility] LDL Cholesterol 156(H) <110 mg/dL (calc) [facility] Comment: LDL-C is now calculated using the Monica calculation, which is a validated novel method providing better accuracy than the Friedewald equation in the estimation of LDL-C. Mikel SS et al. MERCEDES. 2013;310(19): 6931-7890 (http://education.KeTech/faq/IVO477) Chol/HDLC Ratio 4.9 <5.0 (calc) [facility] Non-HDL Cholesterol 180(H) <120 mg/dL (calc) [facility] Comment: For patients with diabetes plus 1 major ASCVD risk factor, treating to a non-HDL-C goal of <100 mg/dL (LDL-C of <70 mg/dL) is considered a therapeutic option. Blood Venous blood specimen / Unknown 12/30/2022 8:53 AM EDT 12/30/2022 8:54 AM EDT Narrative [facility] - 12/31/2022 4:59 AM EDT FASTING:YES FASTING: YES Alayna Rodriguez MD LAB BLOOD ORDERABLES Final Result [facility] [address], [place] [address] [facility] [address] [place] [phone] from Last 3 Months or Most Recently Relevant to Health Maintenance Insurance [facility] [employer] C[employer] Care Teams Organic Search Lead Relationship Specialty Start Date End Date Alayna Krishna MD [address] [place] [phone] PCP - General Family Medicine 02/26/22
== END 2025-03-08 17:40 | disposition home or self-care (01) ==
LOC: HO.HHCLNP 17:39
PROVIDERS: Visit Provider Internal Medicine
DX: Z12.4 Encounter for screening for malignant neoplasm of cervix (principal)
CPT/HCPCS: 88175

== ENCOUNTER 2025-03-16 18:53 | Emergency (ER) | payer MEDICAID, SELFPAY ==
[2025-03-16 19:03] VITALS: BP 105/71; PULSE 94; RESP 16; TEMP 36; O2SAT 97; BMI 49.8
--- NOTE | 2025-03-16 19:04 | ED.EYEPROB ---
HPI - Eye Problem General Chief complaint: Skin/Abscess/Foreign Body Stated complaint: rt eye pimple swollen, headaches Time Seen by Provider: 03/16/25 20:42 Source: patient Mode of arrival: ambulatory Limitations: no limitations History of Present Illness ED Provider: Ed HESTER HPI Narrative: The patient is a 19-year-old female presenting to the ED reporting for the past 3 days she has been experiencing a ?pimple? above her right eyebrow which is experiencing increased swelling after attempting to ?pop it ?, patient reports pain with raising her eyebrows but denies painful or impaired EOMs. The patient denies associated fever/chills, nausea, vomiting or other systemic complaint. The patient denies vision changes or recent trauma. The patient has not attempted any OTC medications or topical ointments for the complaint. Related Data Home Medications ?Medication ?Instructions ?Recorded ?Confirmed epinephrine 0.3 mg/0.3 mL 0.3 ml IM DIRECTED 08/05/22 08/05/22 injection, auto-injector (EpiPen) Previous Rx's ?Medication ?Instructions ?Recorded ibuprofen 600 mg tablet 600 mg PO Q8H PRN pain #20 tabs 02/07/21 ferrous sulfate 325 mg (65 mg 325 mg PO BID #60 tabs 08/05/22 iron) tablet cetirizine 10 mg tablet 10 mg PO DAILY PRN allergy 02/24/23 symptoms #14 tabs permethrin 5 % topical cream 1 appl topical Q14D 2 doses #60 02/24/23 grams prednisone 20 mg tablet 60 mg (3 x 20 mg) PO DAILY 3 days 02/24/23 #9 tabs azithromycin 250 mg tablet 250 mg PO DAILY 4 days #4 tabs 09/19/24 acetaminophen 500 mg capsule 1,000 mg (2 x 500 mg) PO .q8 PRN 03/16/25 fever or pain #30 caps cephalexin 500 mg capsule 500 mg PO Q12H #10 caps 03/16/25 ibuprofen 600 mg tablet 600 mg PO Q8H PRN fever or pain 03/16/25 #30 tabs Allergies Allergy/AdvReac Type Severity Reaction Status Date / Time shrimp (SHRIMP) Allergy Unknown ANGIOEDEMA Verified 03/16/25 19:06 Review of Systems Review of Systems: Yes all other systems are reviewed and are negative PMFSH Past Medical History Medical History Asthma Thrombocytopenia Family History Family History (Updated 08/05/22 @ 08:30 by Meredith Lisa) Maternal Grandfather Heart disease Mother Stroke Paternal Grandfather Diabetes Paternal Aunt Obesity Other H/O heart bypass surgery Social History Social History (Updated 08/05/22 @ 08:31 by Meredith Lisa) Household Members: Family Housing: Condominium Alcohol intake: never Patient Tobacco Use Status: Never used Tobacco Substance Use Type: Marijuana Advance Directives: No Advance Directives Information Provided: No Do you have a plan to hurt others: No Plan service: No Current occupational status: employed Current occupation: rt handed/[employer] Physical Exam Vital Signs: Vital Signs: Last Vital Signs Temp 98.2 F 03/16/25 20:20 Pulse 88 03/16/25 20:20 Resp 16 03/16/25 20:20 BP 126/58 L 03/16/25 20:20 Pulse Ox 97 03/16/25 20:20 O2 Del Method Room Air 03/16/25 20:20 BMI result Body Mass Index 49.8 CONSTITUTIONAL: The patient appears non-toxic, well nourished and in no acute distress. Vital signs as documented. HEAD: There is a punctate furuncle above the right medial eyebrow with mild surrounding swelling, no large abscess, no active drainage, no evidence of orbital or periorbital cellulitis. Head is otherwise atraumatic, normocephalic. EYES: EOMs intact and non-painful, pupils equal, conjunctiva clear, no exudate. ENT: Nares patent, no discharge. Airway patent, no audible stridor, visible mucosa is pink and moist without noted lesions. NECK: trachea is midline, no obvious masses or gross abnormalities. CHEST: Symmetric movement, normal appearance. LUNGS: Non-labored work of breathing. CARDIAC: No evidence of hypoperfusion. ABDOMEN: Nondistended, no obvious injury. : Deferred. EXTREMITIES: Moves all extremities spontaneously without reported pain. No obvious injury or deformity noted. NEURO: Alert and oriented x3, CN II-XII appear grossly intact. Cerebellar Functioning grossly intact. Speech clear and appropriate. SKIN: Warm, dry, color appropriate. No rashes or lesions noted. Course Course Course Narrative: 03/16/251903 KACIE Gay This is a Rapid Medical Examination (RME) performed by Jennifer Wyman PA-C in triage. Full HPI, ROS, assessment and treatment plan per primary provider in the Main ED. Hx: 19 yo F here for eval of pimple above her right eye x3 days. the area has been increaseing in size, now reports swelling around her right eye with intermittent blurred vision from the eye. has attempted to ella the area, unable to express any discharge. Medical Decision Making Medical Decision Making MDM Narrative: 10:07 PM 03/16/2025 (Jennifer HESTER): The patient is a 19-year-old female presenting to the ED reporting for the past 3 days she has been experiencing a ?pimple? above her right eyebrow which is experiencing increased swelling after attempting to ?pop it ?, patient reports pain with raising her eyebrows but denies painful or impaired EOMs. The patient denies associated fever/chills, nausea, vomiting or other systemic complaint. The patient denies vision changes or recent trauma. The patient has not attempted any OTC medications or topical ointments for the complaint. The patient's exam reveals evidence of a punctate furuncle above the right medial eyebrow with mild surrounding swelling, no large abscess, no active drainage, no evidence of orbital or periorbital cellulitis. Patient will be treated with antibiotics, bacitracin, anti-inflammatories, and instructions for moist heat applications. Admission/Observation Consideration of admission/observation: Escalation of care including admission/observation considered Discharge Plan Discharge Clinical Impression: Furuncle of face Patient Disposition: Home, Self-Care Instructions: Furunculosis and Carbunculosis (ED) Additional Instructions: Thank you for choosing [facility]'s Emergency Department for your care today. At this time there is no indication for admission to the hospital or continued ED observation, and it is safe to discharge you home. Your swelling over your right eyebrow is due to an infected hair follicle, known as a furuncle. This is often caused by bacteria. We will treat you with a topical antibiotic ointment, and also oral antibiotic due to its proximity to your eye socket. Please take cephalexin as prescribed until it is finished. You should take alternating (staggered) doses of ibuprofen 600mg and Tylenol 1000mg every 4 hours as needed for any additional pain. Please apply moist heat via a washcloth with warm water for 20 minutes at least twice daily, more often if possible. Please apply bacitracin ointment twice daily after applying moist heat. Please stay well hydrated and get plenty of rest. Please follow up with your primary care physician for re-evaluation, additional management of your symptoms, and continued preventative care. If you do not have a primary care physician, please call the [facility] at [phone] to establish a new primary care physician. While waiting to establish your new primary care physician, you can call our [facility]in [facility] at [phone] for non-emergency needs. Please return to the emergency department if you develop a severe or sudden change in your symptoms, a fever over 100.4 that does not improve with Tylenol or Ibuprofen, recurrent vomiting, or any other new or worsening symptoms or concerns. Prescriptions: New ibuprofen 600 mg tablet 600 mg PO Q8H PRN (Reason: fever or pain) Qty: 30 0RF acetaminophen 500 mg capsule 1,000 mg PO .q8 PRN (Reason: fever or pain) Qty: 30 0RF cephalexin 500 mg capsule 500 mg PO Q12H Qty: 10 0RF No Action ibuprofen 600 mg tablet 600 mg PO Q8H PRN (Reason: pain) Qty: 20 0RF epinephrine [EpiPen] 0.3 mg/0.3 mL auto-injector 0.3 ml IM DIRECTED ferrous sulfate 325 mg (65 mg iron) Tablet 325 mg PO BID Qty: 60 3RF prednisone 20 mg tablet 60 mg PO DAILY 3 Days Qty: 9 0RF cetirizine 10 mg tablet 10 mg PO DAILY PRN (Reason: allergy symptoms) Qty: 14 0RF permethrin 5 % cream 1 appl topical Q14D Qty: 60 0RF Rx Instructions: apply second treatment 14 days from neck to bottom of feet, leave on 10 hours then shower azithromycin 250 mg tablet 250 mg PO DAILY 4 Days Qty: 4 0RF Rx Instructions: start on day 2 of therapy Referrals: Alayna Krishna MD [Primary Care Provider, Internal Medicine] Clinical Impression: Furuncle of face Print Language: Danish
[2025-03-16 20:20] VITALS: BP 126/58; PULSE 88; RESP 16; TEMP 36.8; O2SAT 97
[2025-03-16 22:22] VITALS: BP 126/58; PULSE 88; RESP 16; TEMP 36.8; O2SAT 97
== END 2025-03-16 22:23 | disposition home or self-care (01) ==
PROVIDERS: Emergency Provider Emergency Medicine; PCP Internal Medicine
DX: L02.02 Furuncle of face (principal)
CPT/HCPCS: 99283; 99284

== ENCOUNTER 2025-05-22 19:39 | Emergency (ER) | payer MEDICAID, SELFPAY ==
--- NOTE | ~2025-05-22 | US_ITS ---
CLINICAL HISTORY: RUQ pain US abdomen limited Comparison: None provided Findings: Majority of the pancreas is obscured by overlying bowel gas. Imaged liver measures 14 cm. Right kidney and aorta are obscured. Partially imaged IVC is unremarkable. No gallbladder wall thickening or pericholecystic fluid. No definite shadowing stones within the imaged gallbladder. Portions of the gallbladder, including fundus are obscured. Imaged CBD is nondilated measuring 4 mm diameter. No right upper quadrant ascites or right pleural effusion in the [id number]. Main portal vein is obscured. Prominent bowel gas noted. IMPRESSION: 1. No ultrasound findings of acute cholecystitis. 2. Imaged CBD is nondilated. This document has been electronically signed by: Tejinder Aponte MD on 05/22/2025 21:18:26
[2025-05-22 19:49] VITALS: BP 135/69; PULSE 86; RESP 18; TEMP 36.7; O2SAT 93; BMI 46.8
--- NOTE | 2025-05-22 19:52 | ED.GENADULT ---
HPI - General Adult General Chief complaint: Nausea/Vomiting/Diarrhea Stated complaint: N/V/D Time Seen by Provider: 05/22/25 22:43 Related Data Home Medications ?Medication ?Instructions ?Recorded ?Confirmed epinephrine 0.3 mg/0.3 mL 0.3 ml IM DIRECTED 08/05/22 08/05/22 injection, auto-injector (EpiPen) Previous Rx's ?Medication ?Instructions ?Recorded ibuprofen 600 mg tablet 600 mg PO Q8H PRN pain #20 tabs 02/07/21 ferrous sulfate 325 mg (65 mg 325 mg PO BID #60 tabs 08/05/22 iron) tablet cetirizine 10 mg tablet 10 mg PO DAILY PRN allergy 02/24/23 symptoms #14 tabs permethrin 5 % topical cream 1 appl topical Q14D 2 doses #60 02/24/23 grams prednisone 20 mg tablet 60 mg (3 x 20 mg) PO DAILY 3 days 02/24/23 #9 tabs azithromycin 250 mg tablet 250 mg PO DAILY 4 days #4 tabs 09/19/24 acetaminophen 500 mg capsule 1,000 mg (2 x 500 mg) PO .q8 PRN 03/16/25 fever or pain #30 caps cephalexin 500 mg capsule 500 mg PO Q12H #10 caps 03/16/25 ibuprofen 600 mg tablet 600 mg PO Q8H PRN fever or pain 03/16/25 #30 tabs cephalexin 500 mg capsule 500 mg PO TID 7 days #21 caps 05/23/25 ondansetron 4 mg disintegrating 4 mg PO Q8H PRN nausea and 05/23/25 tablet vomiting #12 tabs Allergies Allergy/AdvReac Type Severity Reaction Status Date / Time shrimp (SHRIMP) Allergy Unknown ANGIOEDEMA Verified 05/22/25 19:54 [facility] Past Medical History Medical History Asthma Thrombocytopenia Family History Family History (Updated 08/05/22 @ 08:30 by Meredith Lisa) Maternal Grandfather Heart disease Mother Stroke Paternal Grandfather Diabetes Paternal Aunt Obesity Other H/O heart bypass surgery Social History Social History (Updated 08/05/22 @ 08:31 by Meredith Lisa) Household Members: Family Housing: [facility] Alcohol intake: never Patient Tobacco Use Status: Never used Tobacco Smoked in Last 30 Days: No Use of substances other than those prescribed or required for medical reasons: No Substance Use Type: Marijuana Advance Directives: No Advance Directives Information Provided: Yes Patient : No service: No Current occupational status: employed Current occupation: rt handed/[employer] Physical Exam ED Vital Signs: Vital Signs - 24 hr 05/22/25 19:49 05/22/25 22:21 05/23/25 01:49 Temperature 98.1 F 98.8 F Pulse Rate 86 90 60 Respiratory Rate 18 15 24 H Blood Pressure 135/69 141/84 H 106/51 L Pulse Oximetry 93 97 100 Oxygen Delivery Method Room Air Room Air Room Air 05/23/25 04:26 05/23/25 04:37 Temperature 98.3 F 98.3 F Pulse Rate 59 59 Respiratory Rate 15 15 Blood Pressure 126/67 126/67 Pulse Oximetry 93 93 Oxygen Delivery Method Room Air Room Air BMI result Body Mass Index 46.8 Course Course Course Narrative: This is an RME: Additional HPI, ROS, PE not included below will be deferred to primary provider. RME assessment and note performed by: Yolanda Valencia PA-C This is a 19-year-old female who presents emergency department with concerns of headache, nausea, vomiting, diarrhea, abdominal pain and chills. Symptoms started yesterday. Also feeling short of breath. Vital signs within normal limits. Lungs are clear to auscultation bilaterally. She does have tenderness palpation in the right upper quadrant. Plan: Labs, UA, ultrasound, further ER evaluation needed. Reevaluation(s) Reevaluation #1: duplicate chart Medications Administered Discontinued Medications Generic Name Dose Route Start Last Admin Trade Name Jvoanna PRN Reason Stop Dose Admin Acetaminophen 975 mg 05/22/25 22:48 05/22/25 23:09 Acetaminophen 325 Mg Tablet PO 05/22/25 22:49 975 mg ONCE ONE Administration Ceftriaxone Sodium 1 gm 05/23/25 02:28 05/23/25 02:45 Ceftriaxone Sodium 1 Gm Vial IVPUSH 05/23/25 02:29 1 gm ONCE ONE Administration Sodium Chloride 1,000 mls @ 999 mls/hr 05/22/25 23:00 05/23/25 00:30 Ns IV 05/23/25 00:00 Infused .Q1H1M EDSON Infusion Magnesium Sulfate 2 gm in 50 mls @ 50 mls/hr 05/23/25 02:28 05/23/25 03:45 Magnesium Sulfate/H2o IV 05/23/25 03:27 Infused ONCE ONE Infusion Ketorolac Tromethamine 15 mg 05/22/25 22:47 05/22/25 23:09 Ketorolac Tromethamine 15 Mg/Ml Vial IVPUSH 05/22/25 22:48 Not Given ONCE ONE Loperamide HCl 6 mg 05/22/25 22:47 05/22/25 23:09 Loperamide Hcl 2 Mg Capsule PO 05/22/25 22:48 6 mg ONCE ONE Administration Metoclopramide HCl 5 mg 05/23/25 02:28 05/23/25 02:46 Metoclopramide Hcl 10 Mg/2 Ml Vial IV 05/23/25 02:29 5 mg ONCE ONE Administration Ondansetron HCl 4 mg 05/22/25 22:47 05/22/25 23:09 Ondansetron Hcl 4 Mg/2 Ml Vial IVPUSH 05/22/25 22:48 4 mg ONCE ONE Administration Medical Decision Making Lab Data 05/22/25 20:34 05/22/25 20:34 Labs: Lab Results 05/22/25 05/22/25 05/22/25 Range/Units 20:34 22:52 23:14 WBC 5.0 (4.8-10.8) X10*3/uL RBC 5.25 (4.20-5.50) X10*6/uL Hgb 14.0 (12.0-16.0) g/dl Hct 41.6 (37.0-47.0) % MCV 79.2 L (80.0-98.0) fL MCH 26.7 L (27.0-33.0) pg MCHC 33.7 (31.0-35.0) g/dl RDW 13.1 (11.0-16.0) % Plt Count 44 L (160-400) X10*3/uL MPV Not Reportable Immature Gran % (Auto) 1.0 H (0.0-0.4) % Neut % (Auto) 71.3 (45-73) % Lymph % (Auto) 18.7 L (20-40) % [place] % (Auto) 8.0 (2-11) % Eos % (Auto) 0.4 (0-4) % Baso % (Auto) 0.6 (0-2) % Lymph # (Auto) 0.9 L (1.2-4.9) X10*3/uL [place] # (Auto) 0.4 (0.1-1.2) X10*3/uL Eos # (Auto) 0.0 (0.0-0.4) X10*3/uL Baso # (Auto) 0.0 (0.0-0.2) X10*3/uL Abs Immat Gran (auto) 0.05 H (0.00-0.03) X10*3/uL Absolute Neuts (auto) 3.6 (2.0-8.3) x10*3/uL Absolute Nucleated RBC 0.000 (0.0-0.012) X10*3/uL Nucleated RBC % (auto) 0.0 (0.0-0.2) /100WBC Smear Tech's Comments VERIFIED Sodium 138 (135-145) mmol/L Potassium 3.6 (3.3-5.1) mmol/L Chloride 108 (96-108) mmol/L Carbon Dioxide 23 (22-29) mmol/L Anion Gap 11 L (12-20) BUN 11 (9-16) mg/dL Creatinine 0.67 (0.5-1.4) mg/dL Estim Creat Clear Calc 172.5 Estimated GFR > 60 Random Glucose 97 (60-115) mg/dL Calcium 9.1 (8.4-10.2) mg/dL Magnesium 2.1 (1.6-2.6) mg/dL Total Bilirubin 0.4 (0.0-1.0) mg/dL Direct Bilirubin 0.1 (0.0-0.5) mg/dL AST 29 (5-31) U/L ALT 29 (0-31) U/L Alkaline Phosphatase 83 (39-117) U/L Total Protein 7.6 (6.5-8.0) g/dL Albumin 4.5 (3.5-5.0) g/dL Lipase 19 (8-78) U/L Beta HCG, Quant < 2 mIU/mL Urine Color Yellow Urine Appearance Clear Urine pH 5.5 (5.0-9.0) Ur Specific [place] 1.025 (1.005-1.025) Urine Protein Negative (Neg-Trace) mg/dL Urine Glucose (UA) Negative (Negative) mg/dL Urine Ketones Negative (Negative) mg/dL Urine Blood Negative (Negative) Urine Nitrite Negative (Negative) Ur Leukocyte Esterase Small (1+) H (Negative) Urine RBC 0-2 (0-2) /HPF Urine WBC 21-50 H (0-5) /HPF Ur Squamous Epith Cells 6-10 (0-2) /HPF Urine Bacteria 4+ (None Seen) Hyaline Casts 0-2 (0-2) /LPF COVID-19 (DIXIE) Negative (Negative) COVID-19 Clin Com See Note Influenza Type A (JUAN) Negative (Negative) Influenza Type B (JUAN) Negative (Negative) Influenza A & B Note See Note Discharge Plan Discharge Clinical Impression: UTI (urinary tract infection), Headache Patient Disposition: Home, Self-Care Instructions: Urinary Tract Infection in Women (ED) Prescriptions: New cephalexin 500 mg capsule 500 mg PO TID 7 Days Qty: 21 0RF ondansetron 4 mg tablet,disintegrating 4 mg PO Q8H PRN (Reason: nausea and vomiting) Qty: 12 0RF No Action ibuprofen 600 mg tablet 600 mg PO Q8H PRN (Reason: pain) Qty: 20 0RF epinephrine [EpiPen] 0.3 mg/0.3 mL auto-injector 0.3 ml IM DIRECTED ferrous sulfate 325 mg (65 mg iron) Tablet 325 mg PO BID Qty: 60 3RF prednisone 20 mg tablet 60 mg PO DAILY 3 Days Qty: 9 0RF cetirizine 10 mg tablet 10 mg PO DAILY PRN (Reason: allergy symptoms) Qty: 14 0RF permethrin 5 % cream 1 appl topical Q14D Qty: 60 0RF Rx Instructions: apply second treatment 14 days from neck to bottom of feet, leave on 10 hours then shower azithromycin 250 mg tablet 250 mg PO DAILY 4 Days Qty: 4 0RF Rx Instructions: start on day 2 of therapy ibuprofen 600 mg tablet 600 mg PO Q8H PRN (Reason: fever or pain) Qty: 30 0RF acetaminophen 500 mg capsule 1,000 mg PO .q8 PRN (Reason: fever or pain) Qty: 30 0RF cephalexin 500 mg capsule 500 mg PO Q12H Qty: 10 0RF Interventions: ED Discharge Assessment Last Done: 05/23/25 04:37 Discharge Date/Time: 05/23/25 04:38 Print Language: Wolof
--- OUTSIDE RECORDS SUMMARY | 2025-05-22 20:33 | XMS_ITS | Clinical Summary ---
Author Organization [employer] Address [address] [place] [address] Care Team Providers Care Chief Solution Architect Name Role Phone Alayna Krishna MD Primary Care Provide r Allergies Active Allergy Reactions Criticality Noted Date Comments Shrimp Extract Angioedema 08/29/2018 Medications FeroSul 325 (65 Fe) MG tablet Take 1 tablet by mouth 2 times daily. 2 Active HPV 9-valent (Gardasil 9) suspension prefilled syringe vaccine prefilled syringe apply IM once 2 Active Multiple Vitamin (Multi-Vitamin) tablet 1 tab by oral route daily 0 Active famotidine (Pepcid) 20 MG tabletIndication s:Nausea Take 1 tablet (20 mg) by mouth in the morning. 30 tablet 11 3 Active Vit-Fe Fumarate-FA ( Vitamins) 28-0.8 MG tabletIndication s:Family planning Take 1 tablet by mouth Once daily. 30 tablet 3 3 Active Additional Information Patient not taking.Reported on 04/10/2025 naproxen (Naprosyn) 250 MG tablet 1-2 tablest by oral route 2 times per day prn pain 10 tablet 4 Active Additional Information Patient not taking.Reported on 04/10/2025 albuterol 108 (90 Base) MCG/ACT inhalerIndicatio ns:Mild intermittent asthma without complication Inhale 2 puffs every 6 (six) hours if needed for wheezing. 18 g 2 4 Active cetirizine (ZyrTEC) 10 MG tabletIndication s:Seasonal allergies Take 1 tablet (10 mg) by mouth Once per day. 30 tablet 2 4 Active fluticasone (Flonase Allergy Relief) 50 MCG/ACT nasal sprayIndications :Seasonal allergies Administer 2 sprays into each nostril Once per day. 16 g 2 4 Active Ascorbic Acid (vitamin C) 250 MG tablet Take 1 tablet (250 mg) by mouth 2 times daily. Take with ferrous sulfate tablets. 60 tablet 2 4 Active Additional Information Patient not taking.Reported on 04/10/2025 cetirizine (ZyrTEC) 10 MG tabletIndication s:Seasonal allergies Take 1 tablet (10 mg) by mouth Once per day. 30 tablet 11 5 01/02/20 26 Active fluticasone (Flonase) 50 MCG/ACT nasal sprayIndications :Seasonal allergies INSTILL 1 SPRAY IN EACH NOSTRIL ONCE DAILY 48 g 5 Active Active Problems Patient Care Coordination No te Formatting of this note migh t be different from the original. C3/CM Maral Valdez RN Problem Noted Date Diagnosed Date Encounter for Papanicolaou smear of cervix 03/08 Assessment & Plan (03/08/2025 4:41 PM EDT): Pelvis exam and PA done, patient will be contacted with results PCOS (polycystic ovarian syndrome) 12/30/2023 Encounter for [...] PM EDT): I presented her case to [facility] and send patient through ambulance to the [...] adults. Nicole asked her to call her director of casework services to request status of the referral. Assessment & Plan (12/29/2022 11:41 AM EDT): CBC will be check with labs Allergic rhinitis 07/02/2016 Resolved Problems Problem Noted Date Diagnosed Date Resolved Date Diminished vision 01/01/2025 03/26/2025 Encounters Date Type Department Care Team Description 05/01/2025 Patient Outreach [facility] [address] [place] [phone] Alayna Krishna MD Care Coordination (CM/CHW outreach) 05/01/2025 Patient Outreach [address] [address] Alayna Krishna MD Care Management (C3CM- f/u call. Not available.) 04/30/2025 Patient Outreach [address] [address] Alayna Krishna MD 04/18/2025 Patient Outreach [address] [address] Alayna Krishna MD Care Management (C3CM- f/u call.) 04/16/[address] [address] Alayna Krishna MD No Show 04/12/2025 Telephone [facility] [address] [place] [address] Alayna Krishna MD Chart Prep 04/10/2025 Patient Outreach [address] [address] Alayna Krishna MD Care Coordination (PT1) 04/10/2025 Patient Outreach [address] [address] Alayna Krishna MD Care Management (C3CM- initial assessment/ enrollment) 04/10/2025 Patient Outreach [address] [address] Alayna Krishna MD Care Coordination (CM/CHW appt reminder) 04/01/2025 Patient Outreach [address] [address] Alayna Krishna MD Care Coordination (CM/CHW outreach) 03/26/2025 1:45 PM EDT Office Visit [facility] [address] [place] [phone] TarkaTyraSheeba, OD Regular astigmatism, bilateral (Primary Dx); Normal eye exam 03/26/2025 Travel 03/25/[address] [address] Alayna Krishna MD Seasonal allergies 03/22/2025 Results Follow-Up [address] [address] Alayna Krishna MD Pap Smear 03/18/2025 Patient Outreach [address] [address] Alayna Krishna MD Care Coordination (CM/CHW outreach) 03/18/2025 Patient Outreach [address] [address] Alayna Krishna MD Care Coordination (CHW chart review) 03/18/2025 Patient Outreach [address] [address] Alayna Krishna MD Care Management (C3- chart review) 03/18/2025 Patient Outreach [address] [address] Alayna Krishna MD 03/08/2025 2:00 PM EDT Procedure Visit [address] [address] Alayna Krishna MD Encounter for Papanicolaou smear of cervix 03/08/2025 Travel 03/07/[address] [address] Alayna Krishna MD Chart Prep from Last 3 Months Immunizations Immunization Administration [...] Types Packs/Day Years Used Date Smoking Tobacco: Every Day Cigarettes Passive Smoke Exposure: Past Smokeless Tobacco: Never Tobacco Cessation:Ready to Q uit: Not Asked; Counseling Given: Not Answered Depression Answer Date Recorded Patient Health Questionnaire-9 Score 9 04/10/2025 Patient Health Questionnaire-9 Score 9 04/10/2025 Last PHQ-9: Questionnaire Data Not on file 0 04/10/2025 Housing Stability Answer Date Recorded What is your housing situation today? I have svetlana rice 04/10/[address] you li ve. Do you have problems with any of the following? None of the above 04/10/2025 Food Insecurity Answer Date Recorded Within the [...] from getting things needed for daily living? I am not sure 04/10/2025 Utilities Answer Date Recorded In the past 12 months, has t he electric, gas, oil or water company threatened to shut off services in your home? No 12/25/2024 Depression Answer Date Recorded Patient Health Questionnaire-2 Score 3 04/10/2025 Internet Access Answer Date Recorded Internet Access [...] 03/08/2025 1:48 PM EDT Plan of Treatment Health Maintenance Due Date Last Done Comments Family Planning (PISQ) 2018 Meningococcal B Vaccine (1 of 2 - Standard) 2019 Pneumococcal Vaccine: Pediatrics (0 to 5 Years) and At-Risk Patients (6 to 49) Years (1 of 2 - PCV) 2022 Chlamydia and Gonorrhea Screening 05/19/2024 05/19/2023, 09/28/2021, 08/03/2021 COVID-19 Vaccine ( season) 2025 Influenza Vaccine (#1) 2025 , 05/19/2023, 08/29/2018, Additional history exists Depression Monitoring 10/11/2025 04/10/2025, 025 Disability Screening 03/08/2026 03/08/2025 Tobacco Screening 03/26/2026 03/26/2025 Alcohol/Substance Use Screening 04/10/2026 04/10/2025 SDOH Screening 04/10/2026 04/10/2025 Lipid Panel 12/31/2027 12/30/2022 Pap Smear 03/08/2028 03/08/2025 DTaP/Tdap/Td Vaccines (8 - Td or Tdap) [...] Procedure Name Priority Date/Time Associated Diagnosis Comments PAP SMEAR Routine 03/08/2025 12:00 AM EDT Encounter for Papanicolaou smear of cervix HEPATITIS C AB W/REFL TO HCV RNA, [...] Recently Relevant to Health Maintenance Results * Pap Smear (03/08/2025 12:00 AM EDT) Swab 03/08/2025 03/12/2025 9:0 9 AM EDT [facility] - 03/21/2025 3:57 PM EDT ----- ------- Name: Hyun Medina Age/Sex: 19/F : 2005 Unit#: [id number] Attend Dr: Alayna Krishna MD Re03/08/25 Status: [facility] Disch: ----- ------- SPEC : [id number] RECD: 03/12/25 STATUS: SETH WOLFE NUM: [id number] MENG: 03/08/25-[address]: Alayna Krishna MD ENTERED: 03/12/25 SP TYPE: Pap Smr OTHR DR: ORDERED: Pap Smear, PAP path review Interpretation General Category: Non-diagnostic. Adequacy: Unsatisfactory for evaluation. Interpretation: Insufficient epithelial component present; acid-wash performed. Abundant blood present. Recommend repeat. Clinical Information LMP:03/03/25 Previous PAP test:Unknown date/findings Material Received ThinPrep-Cervical PAP Disclaimer As of June 13, 2024, the technical services to include automated prescreening performed by the ThinPrep Imaging System, PAP screening and HPV testing will be performed at [facility] (CLIA #[id number]), [address] [place], [place] [address]. Testing for HPV was performed using the Albert MARGIE 6800 system. The presence of HPV in the female genital tract is associated with a number of diseases, including cervical carcinoma. The HPV DNA high risk pool tests for HPV 31, 33, 35, 39, 45, 51, 52, 56, 58, 59, 66 and 68. The testing for HPV 16 and 18 genotypes has also been performed. A positive result indicates detection of nucleic acid sequences from one or more subtypes, whereas a negative result indicates such sequences were not detected. All professional services are performed by [facility] ([address] [place] [address]; ; CLIA #[id number]). The PAP Test is a screening procedure with the inherent possibility of both false negative and false positive results. Results should be interpreted in the context of historic and current clinical findings. Reliability of the PAP Test is enhanced by performing the test on a regular repetitive basis. ----- ------- Signed (signature on file) Sheyla Richview 03/21/25 1557 ----- ------- END OF REPORT us Alayna Rodriguez MD LAB CYTOLOGY ORDERABL ES Final Result [facility] [address] [place] [address] [phone] * HIV Ab/Ag ([facility]) (05/19/2023 11:26 AM EDT) HIV AB/AG Nonreactive Nonreactive [facility] Comment:HIV-1 p24 Ag and/or HIV-1/HIV-2 Ab not detected.A test result that is nonreactive does not exclude thepossibility of exposure to or infection with HIV-1 and/orHIV-2. Nonreactive results in this assay for individualswith prior exposure to HIV-1 and/or HIV-2 may be due toantigen and antibody levels that are below the limit ofdetection of this assay.The BioCision HIV Ag/Ab Combo assay result andsupplemental assay results should be interpreted inconjunction with the patient's clinical presentation,history and other laboratory results. If the results areinconsistent with clinical evidence, additional testing issuggested to confirm the result. 05/19/2023 11:2 6 AM EDT 05/19/2023 12:56 PM EDT us Alayna Rodriguez MD LAB BLOOD ORDERABLES Final Result Performing Organization Address [facility]/ZIP Co de Phone Number [facility] [address] [place] [phone] * Hepatitis C Antibody with Reflex to HCV, RNA, Quantitative, Real-Time PCR (05/19/2023 11:26 AM EDT) Pathologist [facility] Hepatitis C Antibody Nonreactive Nonreactive [facility] Comment:Antibodies to HCV no t detected; does not exclude early acuteHCV infection. Blood Venous blood specimen / Unknown 05/19/2023 11:26 AM EDT 05/19/2023 12:56 PM EDT us Alayna Rodriguez MD LAB BLOOD ORDERABLES Final Result Performing Organization Address [facility]/ZIP Co de Phone Number [facility] [address] [place] [phone] * Chlamydia/N. Gonorrhoeae RNA, TMA, Urogenitial (05/19/2023 11:26 AM EDT) CT PCR NOT DETECTED Not Detect. [facility] Comment:A not detected test result [...] psychologicalconsequences. NG PCR NOT DETECTED Not Detect. [facility] Comment:A not detected test result [...] AM EDT 05/19/2023 1:01 PM EDT Narrative [facility] - 05/19/2023 4:51 PM EDT Urine us Alayna Rodriguez MD LAB MICROBIOLOGY - GE NERAL ORDERABLES Final Result [facility] [address] [place] [phone] * (ABNORMAL) Lipid Panel, Standard (12/30/2022 8:53 AM EDT) Cholesterol, Total 226(H) <170 mg/dL [email or web address] [place] HDL Cholesterol 46 >45 mg/dL Ques t [email or web address] [place] Triglycerides 119(H) <90 mg/dL [facility] [facility] [place] LDL Cholesterol 156(H) <110 mg/dL (calc) [facility] [place] Comment: LDL-C is now calculated using the Monica calculation, which is a validated novel method providing better accuracy than the Friedewald equation in the estimation of LDL-C. Mikel SS et al. MERCEDES. 2013;310(19): 5653-4687 (http://education.Geelbe/faq/TGF565) Chol/HDLC Ratio 4.9 <5.0 (calc) [employer] [facility] [place] Non-HDL Cholesterol 180(H) <120 mg/dL (calc) [employer] [facility] [place] Comment: For patients with diabetes plus 1 major ASCVD risk factor, treating to a non-HDL-C goal of <100 mg/dL (LDL-C of <70 mg/dL) is considered a therapeutic option. Blood Venous blood specimen / Unknown 12/30/2022 8:53 AM EDT 12/30/2022 8:54 AM EDT Narrative [facility] - 12/31/2022 4:59 AM EDT FASTING:YES FASTING: YES us Alayna Rodriguez MD LAB BLOOD ORDERABLES Final Result [facility] [address], [place] [address] [email or web address] [place] [address] [place] [phone] from Last 3 Months or Most Recently Relevant to Health Maintenance Insurance [facility] C3 Care Teams Chief Solution Architect Relationship Specialty Start Date End Date Alayna Krishna MD [address] [place] [phone] PCP - General Family Medicine 02/26/22
[2025-05-22 20:44] LABS: Hematocrit 41.6 % (37.0-47.0); NRBC Abs Auto 0.000 X10*3/uL (0.0-0.012); NRBC Pct Auto 0.0 /100WBC (0.0-0.2); SCAN SMEAR FLAG 1
[2025-05-22 20:46] LABS: Hemoglobin 14.0 g/dl (12.0-16.0); Imm Gran Abs Auto 0.05 X10*3/uL (0.00-0.03); Imm Gran Pct Auto 1.0 % (0.0-0.4); Lymphocytes Absolute Auto 0.9 X10*3/uL (1.2-4.9); MANUAL DIFF FLAG SCAN; Mean Corpuscular HGB Conc 33.7 g/dl (31.0-35.0); Mean Corpuscular Hemoglobin 26.7 pg (27.0-33.0); Mean Corpuscular Volume 79.2 fL (80.0-98.0); Red Blood Count 5.25 X10*6/uL (4.20-5.50); White Blood Count 5.0 X10*3/uL (4.8-10.8)
[2025-05-22 20:55] LABS: Alanine Aminotransferase 29 U/L (0-31); Albumin Level 4.5 g/dL (3.5-5.0); Alkaline Phosphatase 83 U/L (39-117); Anion Gap 11 (12-20); Aspartate Amino Transferase 29 U/L (5-31); Blood Urea Nitrogen 11 mg/dL (9-16); Calcium 9.1 mg/dL (8.4-10.2); Carbon Dioxide 23 mmol/L (22-29); Chloride 108 mmol/L (96-108); Creatinine Clr Calc Pharmacy 172.5; Estimated Glomerular Filt Rate > 60; Lipase 19 U/L (8-78); Magnesium 2.1 mg/dL (1.6-2.6); Potassium 3.6 mmol/L (3.3-5.1); Sodium 138 mmol/L (135-145); Total Protein 7.6 g/dL (6.5-8.0)
[2025-05-22 21:14] LABS: PLT ABN DIST 1; Platelet Count 44 X10*3/uL (160-400)
[2025-05-22 22:21] VITALS: BP 141/84; PULSE 90; RESP 15; TEMP 37.1; O2SAT 97
[2025-05-22 23:13] LABS: COVID-19 Test Negative (Negative); IDNOW Serial# 55D5AD1C; IDNOW Serial# 58CA691E; Influenza B2 Negative (Negative)
--- NOTE | 2025-05-22 23:13 | ED_ITS ---
HPI - General Adult General Chief complaint: Nausea/Vomiting/Diarrhea Stated complaint: N/V/D Time Seen by Provider: 05/22/25 22:43 Source: patient Mode of arrival: ambulatory Limitations: no limitations History of Present Illness ED Provider: Dr. Sheth HPI narrative: 19-year-old female history of thrombocytopenia iron-deficiency anemia presented hospital with nausea vomiting and diarrhea since yesterday. Patient is complaining of some headaches as well. Patient is complaining of some epigastric tenderness. Does endorse some nausea however had a have much vomiting. She states she is dry heaving. She does have subjective fever. Related Data Home Medications ?Medication ?Instructions ?Recorded ?Confirmed epinephrine 0.3 mg/0.3 mL 0.3 ml IM DIRECTED 08/05/22 injection, auto-injector (EpiPen) Previous Rx's ?Medication ?Instructions ?Recorded ibuprofen 600 mg tablet 600 mg PO Q8H PRN pain #20 t abs 02/07/21 ferrous sulfate 325 mg (65 mg 325 mg PO BID #60 tabs 1 10/06/21 iron) tablet cetirizine 10 mg tablet 10 mg PO DAILY PRN allergy 0 02/24/23 symptoms #14 tabs permethrin 5 % topical cream 1 appl topical Q14D 2 dos es #60 02/24/23 grams prednisone 20 mg tablet 60 mg (3 x 20 mg) PO DAILY 3 days 02/24/23 #9 tabs azithromycin 250 mg tablet 250 mg PO DAILY 4 days #4 t abs 09/19/24 acetaminophen 500 mg capsule 1,000 mg (2 x 500 mg) PO .q8 PRN 03/16/25 fever or pain #30 caps cephalexin 500 mg capsule 500 mg PO Q12H #10 caps 02/20 02/13 ibuprofen 600 mg tablet 600 mg PO Q8H PRN fever or p ain 03/16/25 #30 tabs cephalexin 500 mg capsule 500 mg PO TID 7 days #21 cap s 05/23/25 ondansetron 4 mg disintegrating 4 mg PO Q8H PRN nausea and 05/23/25 tablet vomiting #12 tabs Allergies Allergy/AdvReac Type Severity Reaction Status Date / Time shrimp (SHRIMP) Allergy Unknown ANGIOEDEMA Verified 05/22/25 19:54 Review of Systems 2 Review of Systems: Pertinent review of systems as mentioned in HPI. All other system otherwise negative. PMFSH Past Medical History [facility] Narrative: Medical history as mentioned in HPI Medical History Asthma Thrombocytopenia Family History Family History (Updated 08/05/22 @ 08:30 by Meredith Lisa) Maternal Grandfather Heart disease Mother Stroke Paternal Grandfather Diabetes Paternal Aunt Obesity Other H/O heart bypass surgery Social History Social History (Updated 08/05/22 @ 08:31 by Meredith Lias) Household Members: [facility] Alcohol intake: never Patient Tobacco Use Status: Never used Tobacco Smoked in Last 30 Days: No Use of substances other than those prescribed or required for medical reasons: No Substance Use Type: Marijuana Advance Directives: No Advance Directives Information Provided: Yes Patient : No service: No Current occupational status: employed Current occupation: rt [employer] Physical Exam ED Exam Exam: General: Pleasant, no distress, interacting appropriately Head: Normacephalic, atraumatic ENT: oral mucosa moist, neck supple, no tracheal deviation Cardiovascular: regular rate, regular rhythm, no murmurs, rubbing, gallops Respiratory: CTAB, no wheeze, rales, rhonchi Gastrointestinal: Soft, non distended, diffuse abdominal tenderness on palpation Extremities: No limb pain or swelling, no calf tenderness Neurological: Awake and alert, no facial droop noted Skin: Warm and dry Psychiatric: Appropriate mood and thoughts Vital Signs: Vital Signs - 24 hr 05/22/25 19:49 05/22/25 22:21 05/23/25 01:49 Temperature 98.1 F 98.8 F Pulse Rate 86 90 60 Respiratory Rate 18 15 24 H Blood Pressure 135/69 141/84 H 106/51 L Pulse Oximetry 93 97 100 Oxygen Delivery Method Room Air Room Air Room Air BMI result Body Mass Index 46.8 Course Reevaluation(s) Reevaluation #1: DR. Hwang's progress note: I assumed care for this patient at 02:00, Patient feels better after hydration, able to tolerate p.o. intake, headache much improved now it is 08/31, patient was instructed to return if not improving. Time: 04:21 Medications Administered Discontinued Medications Generic Name Dose Route Start Last Admin Trade Name Freq PRN Reason Stop Dose Admin Acetaminophen 975 mg 05/22/25 22:48 05/22/25 23:09 Acetaminophen 325 Mg Tablet PO 05/22/25 22:49 975 mg ONCE ONE Administration Ceftriaxone Sodium 1 gm 05/23/25 02:28 05/23/25 02:45 Ceftriaxone Sodium 1 Gm Vial IVPUSH 05/23/25 02:29 1 gm ONCE ONE Administration Sodium Chloride 1,000 mls @ 999 mls/hr 05/22/25 23:00 05/23/25 00:30 Ns IV 05/23/25 00:00 Infused .Q1H1M EDSON Infusion Magnesium Sulfate 2 gm in 50 mls @ 50 mls/hr 05/23/25 02:28 05/23/25 03:45 Magnesium Sulfate/H2o IV 05/23/25 03:27 Infused ONCE ONE Infusion Ketorolac Tromethamine 15 mg 05/22/25 22:47 05/22/25 23:09 Ketorolac Tromethamine 15 Mg/Ml Vial IVPUSH 05/22/25 22:48 Not Given ONCE ONE Loperamide HCl 6 mg 05/22/25 22:47 05/22/25 23:09 Loperamide Hcl 2 Mg Capsule PO 05/22/25 22:48 6 mg ONCE ONE Administration Metoclopramide HCl 5 mg 05/23/25 02:28 05/23/25 02:46 Metoclopramide Hcl 10 Mg/2 Ml Vial IV 05/23/25 02:29 5 mg ONCE ONE Administration Ondansetron HCl 4 mg 05/22/25 22:47 05/22/25 23:09 Ondansetron Hcl 4 Mg/2 Ml Vial IVPUSH 05/22/25 22:48 4 mg ONCE ONE Administration Medical Decision Making Medical Decision Making [facility] Narrative: This is a 19-year-old female presented hospital today for nausea vomiting diarrhea since yesterday. I suspect patient likely has viral gastroenteritis. Her abdominal exam is nonspecific. However she does not have any signs of acute search exam. We will plan to give patient some IV Zofran, Imodium. IV fluid and Tylenol will be given to the patient. We will plan to reassess patient afterward. Review patient's lab work. No sign of leukocytosis, patient's does have signs of thrombocytopenia platelets at 44, patient's chemistries unremarkable. Abdominal lab work did not show any signs of significant abnormality. Flu and COVID swab is negative. Patient's UA does show some signs of UTI. Patient stated that she does have increased urinary frequency no dysuria. We will plan to give patient a dose IV ceftriaxone. She is still having some headache we will plan to give patient some IV Reglan and IV magnesium. We will plan to reassess patient. I will plan to send the patient home with Keflex to take for her UTI. Patient will be signed out to oncoming provider pending reassessment after medication. Differential Diagnosis Differential Diagnoses: The differential diagnosis associated with the presentation includes Viral gastroenteritis, gastritis, cholecystitis, colitis Lab Data MDM Lab Attestation statement: I reviewed the patient's lab results. 05/22/25 20:34 05/22/25 20:34 Labs: Lab Results 05/22/25 05/22/25 05/22/25 Range/Units 20:34 22:52 23:14 WBC 5.0 (4.8-10.8) X10*3/uL RBC 5.25 (4.20-5.50) X10*6/uL Hgb 14.0 (12.0-16.0) g/dl Hct 41.6 (37.0-47.0) % MCV 79.2 L (80.0-98.0) fL MCH 26.7 L (27.0-33.0) pg MCHC 33.7 (31.0-35.0) g/dl RDW 13.1 (11.0-16.0) % Plt Count 44 L (160-400) X10*3/uL MPV Not Reportable Immature Gran % (Auto) 1.0 H (0.0-0.4) % Neut % (Auto) 71.3 (45-73) % Lymph % (Auto) 18.7 L (20-40) % [place] % (Auto) 8.0 (2-11) % Eos % (Auto) 0.4 (0-4) % Baso % (Auto) 0.6 (0-2) % Lymph # (Auto) 0.9 L (1.2-4.9) X10*3/uL [place] # (Auto) 0.4 (0.1-1.2) X10*3/uL Eos # (Auto) 0.0 (0.0-0.4) X10*3/uL Baso # (Auto) 0.0 (0.0-0.2) X10*3/uL Abs Immat Gran (auto) 0.05 H (0.00-0.03) X10*3/uL Absolute Neuts (auto) 3.6 (2.0-8.3) x10*3/uL Absolute Nucleated RBC 0.000 (0.0-0.012) X10*3/uL Nucleated RBC % (auto) 0.0 (0.0-0.2) /100WBC Smear Tech's Comments VERIFIED Sodium 138 (135-145) mmol/L Potassium 3.6 (3.3-5.1) mmol/L Chloride 108 (96-108) mmol/L Carbon Dioxide 23 (22-29) mmol/L Anion Gap 11 L (12-20) BUN 11 (9-16) mg/dL Creatinine 0.67 (0.5-1.4) mg/dL Estim Creat Clear Calc 172.5 Estimated GFR > 60 Random Glucose 97 (60-115) mg/dL Calcium 9.1 (8.4-10.2) mg/dL Magnesium 2.1 (1.6-2.6) mg/dL Total Bilirubin 0.4 (0.0-1.0) mg/dL Direct Bilirubin 0.1 (0.0-0.5) mg/dL AST 29 (5-31) U/L ALT 29 (0-31) U/L Alkaline Phosphatase 83 (39-117) U/L Total Protein 7.6 (6.5-8.0) g/dL Albumin 4.5 (3.5-5.0) g/dL Lipase 19 (8-78) U/L Beta HCG, Quant < 2 mIU/mL Urine Color Yellow Urine Appearance Clear Urine pH 5.5 (5.0-9.0) Ur Specific [place] 1.025 (1.005-1.025) Urine Protein Negative (Neg-Trace) mg/dL Urine Glucose (UA) Negative (Negative) mg/dL Urine Ketones Negative (Negative) mg/dL Urine Blood Negative (Negative) Urine Nitrite Negative (Negative) Ur Leukocyte Esterase Small (1+) H (Negative) Urine RBC 0-2 (0-2) /HPF Urine WBC 21-50 H (0-5) /HPF Ur Squamous Epith Cells 6-10 (0-2) /HPF Urine Bacteria 4+ (None Seen) Hyaline Casts 0-2 (0-2) /LPF COVID-19 (DIXIE) Negative (Negative) COVID-19 Clin Com See Note Influenza Type A (JUAN) Negative (Negative) Influenza Type B (JUAN) Negative (Negative) Influenza A & B Note See Note Prescription Management I considered prescription management with: Antibiotic Discharge Plan Discharge Clinical Impression: UTI (urinary tract infection), Headache Patient Disposition: Home, Self-Care Instructions: Urinary Tract Infection in Women (ED) Prescriptions: New cephalexin 500 mg capsule 500 mg PO TID 7 Days Qty: 21 0RF ondansetron 4 mg tablet,disintegrating 4 mg PO Q8H PRN (Reason: nausea and vomiting) Qty: 12 0RF No Action ibuprofen 600 mg tablet 600 mg PO Q8H PRN (Reason: pain) Qty: 20 0RF epinephrine [EpiPen] 0.3 mg/0.3 mL auto-injector 0.3 ml IM DIRECTED ferrous sulfate 325 mg (65 mg iron) Tablet 325 mg PO BID Qty: 60 3RF prednisone 20 mg tablet 60 mg PO DAILY 3 Days Qty: 9 0RF cetirizine 10 mg tablet 10 mg PO DAILY PRN (Reason: allergy symptoms) Qty: 14 0RF permethrin 5 % cream 1 appl topical Q14D Qty: 60 0RF Rx Instructions: apply second treatment 14 days from neck to bottom of feet, leave on 10 hours then shower azithromycin 250 mg tablet 250 mg PO DAILY 4 Days Qty: 4 0RF Rx Instructions: start on day 2 of therapy ibuprofen 600 mg tablet 600 mg PO Q8H PRN (Reason: fever or pain) Qty: 30 0RF acetaminophen 500 mg capsule 1,000 mg PO .q8 PRN (Reason: fever or pain) Qty: 30 0RF cephalexin 500 mg capsule 500 mg PO Q12H Qty: 10 0RF Interventions: ED Discharge Assessment Last Done: 05/23/25 04:37 Discharge Date/Time: 05/23/25 04:38 Print Language: Honduran
[2025-05-22 23:20] LABS: Appearance Urine Clear; Glucose Urine UA Negative (Negative); PH 5.5 (5.0-9.0); Specific Gravity - Urine 1.025 (1.005-1.025); UMIC TRIGGER UACC YES
--- NOTE | 2025-05-22 23:21 | PC.NURSE ---
this rn assumed care of pt, 20g placed in right forearm, pt medicated per MD Domenic magdaleno at bedside with pt. pt provided urine sample and sample sent to lab
[2025-05-22 23:23] LABS: UACC Culture Trigger YES
[2025-05-23 01:49] VITALS: BP 106/51; PULSE 60; RESP 24; O2SAT 100
[2025-05-23] MEDS: Magnesium Sulfate/H2O 2 GM/50 ML PIGGYBACK IV (02:45)
[2025-05-23 04:26] VITALS: BP 126/67; PULSE 59; RESP 15; TEMP 36.8; O2SAT 93
[2025-05-23 04:37] VITALS: BP 126/67; PULSE 59; RESP 15; TEMP 36.8; O2SAT 93
== END 2025-05-23 04:38 | disposition home or self-care (01) ==
PROVIDERS: Physician Assistant Medical; Emergency Provider Student in an Organized Health Care Education/Training Program; PCP Internal Medicine
DX: N39.0 Urinary tract infection, site not specified (principal); R11.2 Nausea with vomiting, unspecified; R51.9 Headache, unspecified; D50.9 Iron deficiency anemia, unspecified; Z03.818 Encounter for observation for suspected exposure to other biological agents ruled out
CPT/HCPCS: 36415; 76705; 80048; 80076; 81001; 83690; 83735; 84702; 85025; 87086; 87502; 87635; 96361; 96365; 96375; 99284; 99285; J0696; J2405; J2765; J3475

== ENCOUNTER → 2025-05-22 19:56 | Outpatient (BNV) | payer MEDICAID, SELFPAY | PROVIDERS: PCP Internal Medicine; Visit Provider Radiology Neuroradiology | DX: R10.11 Right upper quadrant pain (principal) | CPT/HCPCS: 76705 ==

== ENCOUNTER 2025-08-06 10:50 | Outpatient (REF) | payer MEDICAID, SELFPAY ==
--- OUTSIDE RECORDS SUMMARY | 2025-08-06 10:00 | XMS_ITS | Encounter Summary ---
Author Organization [email or web address] Address [address] [facility] 7 [place] [address] Care Team Providers Care Spinning And Winding Supervisor Name Role Phone Alayna Krishna MD Primary Care Provide r Reason for Referral * Consultation (Routine) - Pending Review Specialty Diagnoses / Procedures Referred By Contac t Referred To Contact Obstetrics and Gynecology Diagnoses Abnormal uterine bleeding Iron deficiency anemia due to chronic blood loss Alayna Krishna MD [address] [place] [id number] Phone: tel: fax: Referral ID Status Reason Start Date Expiration Date Visits Requested Visits Authorized [id number] Pending Review Specialty Services Required 08/06/2026 1 1 Scheduling Instructions Please refer to [facility] thank you Encounter Details Date Type Department Care Team (Latest Contact Info) Description 08/06/2025 10:00 AM EST Office Visit [facility] [address] [place] [phone] Alayna Krishna MD [address] [place] [phone] Thrombocytopenic disorder (CMS/HCC) (Primary Dx); Abnormal uterine bleeding; Iron deficiency anemia due to chronic blood loss; Class 3 severe obesity due to excess calories without serious comorbidity with body mass index (BMI) of 45.0 to 49.9 in adult (HCC); Autoimmune thrombocytopenia (CMS/HCC) (HCC); Mild intermittent asthma without complication; Dietary counseling; Exercise counseling; Migraine with aura and without status migrainosus, not intractable; Encounter for immunization Social History Tobacco Use Types Packs/Day Years Used Date Smoking Tobacco: Former Cigarettes Passive Smoke Exposure: Past Smokeless Tobacco: Never Tobacco Cessation:Counseling Given: Not Answered Depression Answer Date Recorded Patient Health Questionnaire-9 Score 6 08/06/2025 Patient Health Questionnaire-9 Score 6 08/06/2025 Last PHQ-9: Questionnaire Data Not on file 1 10/07/2024 Housing Stability Answer Date Recorded What is [...] Date Recorded Patient Health Questionnaire-2 Score 0 08/06/2025 Internet Access Answer Date Recorded Internet Access Q1 Yes 12/25/2024 Internet Access Q2 Not on file 12/25/2024 Comments Unknown Sex and Gender Information Value Date Recorded Sex Assigned at Female 06/21/2022 10:30 AM EDT Legal Sex Female 10:30 AM EDT Gender Identity Female 06/21/2022 10:30 AM EDT Sexual Orientation Straight 06/21/2022 10 :30 AM EDT documented as of this encounter Last Filed Vital Signs Vital Sign Reading Time Taken Comments Blood Pressure 112/80 08/06/2025 10:06 AM EST Pulse 79 08/06/2025 10:06 AM EST Temperature - - Respiratory Rate 19 08/06/2025 10:06 AM EST Oxygen Saturation 97% 08/06/2025 10:06 AM EST Inhaled Oxygen Concentration - - Weight 129 kg (284 lb) 08/06/2025 10:06 AM EST Height 162.6 cm (5' 4 ) 08/06/2025 10:06 AM EST Body Mass Index 48.75 08/06/2025 10:06 AM EST documented in this encounter Functional Status * Over the past 2 weeks, how often have you been bothered by any of the following problems? Question Answer Date of Assessment Author Patient Health Questionnaire-2 Score 0 07/22 10:08 AM Roxanne Henderson MA * Little interest or pleasure in doing things Answer Date of Assessment Author Not at all 08/06/2025 10:08 AM Kathie Henderson MA * Feeling down, depressed, or hopeless Answer Date of Assessment Author Not at all 08/06/2025 10:08 AM Kathie Henderson MA * Trouble falling or staying asleep, or sleeping too much Answer Date of Assessment Author More than half the days 08/06/2025 10:08 AM Roxanne Henderson MA * Feeling tired or having little energy Answer Date of Assessment Author More than half the days 08/06/2025 10:08 AM Roxanne Henderson MA * Poor appetite or overeating Answer Date of Assessment Author Several days 08/06/2025 10:08 AM Kathie Henderson MA * Feeling bad about yourself - or that you are a failure or have let yourself or your family down Answer Date of Assessment Author Not at all 08/06/2025 10:08 AM Kathie Henderson MA * Trouble concentrating on things, such as reading the newspaper or watching television Answer Date of Assessment Author Several days 08/06/2025 10:08 AM Kathie Henderson MA * Moving or speaking so slowly that other people could have noticed? Or the opposite - being so fidgety or restless that you have been moving around a lot more than usual. Answer Date of Assessment Author Not at all 08/06/2025 10:08 AM Kathie Henderson MA * Thoughts that you would be better off or hurting yourself in some way Answer Date of Assessment Author Not at all 08/06/2025 10:08 AM Kathie Henderson MA * Patient Health Questionnaire-9 Score Answer Date of Assessment Author 6 08/06/2025 10:08 AM Kathie Henderson MA * Over the last 2 weeks, how often have you been bothered by any of the following problems? Question Answer Date of Assessment Author Feeling nervous, anxious, or on edge 0 07/22 10:07 AM Roxanne Henderson MA Not being able to stop or co ntrol worrying 0 08/06/2025 10:07 AM Roxanne Henderson MA Worrying too much about diff erent things 0 08/06/2025 10:07 AM Roxanne Henderson MA Trouble relaxing 0 08/06/2025 10:07 AM Roxanne Henderson MA Being so restless that it is hard to sit still 1 08/06/2025 10:07 AM Roxanne Henderson MA Becoming easily annoyed or irritable 1 07/22 10:07 AM Roxanne Henderson MA Feeling afraid as if somethi ng awful might happen 0 08/06/2025 10:07 AM Roxanne Henderson MA MCKAY-7 Total Score 2 08/06/2025 10:07 AM Roxanne Henderson MA * How difficult have these problems made it for you to do your work, take care of things at home, or get along with other people? Answer Date of Assessment Author Somewhat difficult 08/06/2025 10:08 AM Roxanne Henderson MA documented as of this encounter Progress Notes * Alayna Rodriguez MD - 08/06/2025 10:00 AM EST SUBJECTIVE: Hyun Medina is a 20 y.o. year old female who presents for Chronic Disease Management . Hyun Medina, 20 years Iron Deficiency Anemia - History of iron deficiency anemia with prior critically low hemoglobin (4 g/dL) - Has not had recent blood or iron level checks - Reports feeling very tired and short of breath lately - Mother noted pallor and increased bleeding recently - Feels body is very weak Asthma - History of asthma - Reports recent episodes of shortness of breath and increased fatigue - Using asthma inhaler as needed Headaches/Migraines - History of migraines - Recent increase in frequency of headaches described as blocky, affecting the whole head - Headaches associated with light and noise sensitivity, visual disturbances, and nausea - Reports feeling like fainting on three occasions at work Menstrual Bleeding - Reports increased bleeding recently Misc - Has not seen gynecology in some time - Missed prior blood work appointment due to mother's illness and work commitments Social History Social History Narrative Not on file Problem List[1] Thrombocytopenic disorder (CMS/HCC) Obesity Mild intermittent asthma Iron deficiency anemia due to chronic blood loss Allergic rhinitis Abnormal uterine bleeding Encounter for preventative adult health care examination Seafood allergy Hand, foot and mouth disease Family planning PCOS (polycystic ovarian syndrome) Encounter for preventive health examination Seasonal allergies Encounter for Papanicolaou smear of cervix Class 3 severe obesity due to excess calories without serious comorbidity with body mass index (BMI) of 45.0 to 49.9 in adult (HCC) Autoimmune thrombocytopenia (CMS/HCC) ([facility]) Migraine with aura and without status migrainosus, not intractable Family History[2] Review of Systems Constitutional: Positive for fatigue. Negative for activity change, appetite change, chills, diaphoresis, fever and unexpected weight change. HENT: Negative. Respiratory: Positive for shortness of breath. Negative for apnea, cough, choking, chest tightness,wheezing and stridor. Cardiovascular: Negative. Genitourinary: Positive for menstrual problem. Neurological: Positive for weakness. OBJECTIVE: Vitals: 08/06/25 1006 BP: 112/80 BP Location: Right arm Patient Position: Sitting BP Cuff Size: Large adult Pulse: 79 Resp: 19 SpO2: 97% Weight: 284 lb (129 kg) Height: 5' 4 (1.626 m) Physical Exam Constitutional: Appearance: Normal appearance. Cardiovascular: Rate and Rhythm: Normal rate and regular rhythm. Pulmonary: Effort: Pulmonary effort is normal. Breath sounds: Normal breath sounds. Abdominal: General: Abdomen is flat. Palpations: Abdomen is soft. Musculoskeletal: Right lower leg: No edema. Left lower leg: No edema. Neurological: Mental Status: She is alert. Follow Up: No follow-ups on file. Medications Ordered Prior to Encounter[3] Problem List Items Addressed This Visit Thrombocytopenic disorder (CMS/HCC) - Primary Relevant Orders CBC auto differential Iron And Total Iron Binding Capacity Ferritin Vitamin B12 (Cobalamin) and Folate Panel, Serum Abnormal uterine bleeding Relevant Orders CBC auto differential Iron And Total Iron Binding Capacity Ferritin Vitamin B12 (Cobalamin) and Folate Panel, Serum Iron deficiency anemia due to chronic blood loss Relevant Medications naproxen (Naprosyn) 500 MG tablet Other Relevant Orders CBC auto differential Iron And Total Iron Binding Capacity Ferritin Vitamin B12 (Cobalamin) and Folate Panel, Serum Class 3 severe obesity due to excess calories without serious comorbidity with body mass index (BMI) of 45.0 to 49.9 in adult ([facility]) Relevant Orders Comprehensive Metabolic Panel Hemoglobin A1c HIV-1/2 Antigen and Antibodies, Fourth Generation, with Reflexes Hepatitis C Antibody with Reflex to HCV, RNA, Quantitative, Real-Time PCR Lipid Panel, Standard Vitamin D, 25-Hydroxy, Total, Immunoassay TSH with Reflex to Free T4 Autoimmune thrombocytopenia ([facility]) ([facility]) Mild intermittent asthma Migraine with aura and without status migrainosus, not intractable Relevant Medications naproxen (Naprosyn) 500 MG tablet Other Visit Diagnoses Dietary counseling Exercise counseling Thrombocytopenic disorder ([facility]): - Ordered blood work to evaluate current status. Abnormal uterine bleeding: - Abnormal uterine bleeding with associated pallor and reported increased bleeding. - Referral to gynecology for further evaluation and management. Iron deficiency anemia due to chronic blood loss: - Iron deficiency anemia suspected due to chronic blood loss and symptoms of pallor, fatigue, and presyncope. Previous hemoglobin noted to be critically low at 4. - Ordered comprehensive blood work to assess iron levels and anemia status. Will send prescriptionsfor iron supplementation as needed. Will follow up by phone regarding critical results. Class 3 severe obesity due to excess calories without serious comorbidity with body mass index (BMI) of 45.0 to 49.9 in adult ([facility]): - Severe obesity, BMI 45-49.9. - Recommended 150 minutes per week of moderate exercise or 75 minutes per week of vigorous exercise. Encouraged weight training. Discussed dietary modifications including reducing sugar, soda, and chocolate intake. Offered referral to ornamental iron worker, which was declined as patient already has resources. Autoimmune thrombocytopenia ([facility]) ([facility]): - Ordered blood work to monitor platelet status. Mild intermittent asthma without complication: - Mild intermittent asthma, currently stable. - Confirmed inhaler is available and in use. No changes to current asthma management. Dietary counseling: - Discussed dietary modifications including reducing sugar, soda, and chocolate intake. Offered referral to ornamental iron worker, declined. Exercise counseling: - Recommended 150 minutes per week of moderate exercise or 75 minutes per week of vigorous exercise. Encouraged weight training. Migraine with aura and without status migrainosus, not intractable: - Migraine with aura, not intractable. Symptoms include photophobia, phonophobia, nausea, and presyncope. - Prescribed naproxen for migraine management. Recommended avoidance of triggers including strong perfumes, prolonged screen time, cheese, wine, chocolate, and stress. Advised to maintain hydration. This note was drafted using Ambient (AI) technology. The patient/patient's guardian has been informed and has consented to the use of this technology: Yes [1] Patient Active Problem List Diagnosis Thrombocytopenic disorder (CMS/HCC) Obesity Mild intermittent asthma Iron deficiency anemia due to chronic blood loss Allergic rhinitis Abnormal uterine bleeding Encounter for preventative adult health care examination Seafood allergy Hand, foot and mouth disease Family planning PCOS (polycystic ovarian syndrome) Encounter for preventive health examination Seasonal allergies Encounter for Papanicolaou smear of cervix Class 3 severe obesity due to excess calories without serious comorbidity with body mass index (BMI) of 45.0 to 49.9 in adult (HCC) Autoimmune thrombocytopenia (CMS/HCC) (HCC) Migraine with aura and without status migrainosus, not intractable [2] No family history on file. [3] Current Outpatient Medications on File Prior to Visit Medication Sig Dispense Refill albuterol 108 (90 Base) MCG/ACT inhaler Inhale 2 puffs every 6 (six) hours if needed for wheezing. 18 g 2 cetirizine (ZyrTEC) 10 MG tablet Take 1 tablet (10 mg) by mouth Once per day. 30 tablet 2 cetirizine (ZyrTEC) 10 MG tablet Take 1 tablet (10 mg) by mouth Once per day. 30 tablet 11 famotidine (Pepcid) 20 MG tablet Take 1 tablet (20 mg) by mouth in the morning. 30 tablet 11 fluticasone (Flonase Allergy Relief) 50 MCG/ACT nasal spray Administer 2 sprays into each nostril Once per day. 16 g 2 fluticasone (Flonase) 50 MCG/ACT nasal spray INSTILL 1 SPRAY IN EACH NOSTRIL ONCE DAILY 48 g 0 [DISCONTINUED] Ascorbic Acid (vitamin C) 250 MG tablet Take 1 tablet (250 mg) by mouth 2 times daily. Take with ferrous sulfate tablets. (Patient not taking: Reported on 04/10/2025) 60 tablet 2 [DISCONTINUED] FeroSul 325 (65 Fe) MG tablet Take 1 tablet by mouth 2 times daily. (Patient not taking: Reported on 04/10/2025) [DISCONTINUED] HPV 9-valent (Gardasil 9) suspension prefilled syringe vaccine prefilled syringe apply IM once (Patient not taking: Reported on 04/10/2025) [DISCONTINUED] Multiple Vitamin (Multi-Vitamin) tablet 1 tab by oral route daily (Patient not taking: Reported on 04/10/2025) [DISCONTINUED] naproxen (Naprosyn) 250 MG tablet 1-2 tablest by oral route 2 times per day prn pain(Patient not taking: Reported on 04/10/2025) 10 tablet 0 [DISCONTINUED] Vit-Fe Fumarate-FA ( Vitamins) 28-0.8 MG tablet Take 1 tablet by mouth Once daily. (Patient not taking: Reported on 04/10/2025) 30 tablet 3 No current facility-administered medications on file prior to visit. documented in this encounter Plan of Treatment Scheduled Orders Name Type Priority Associated Diagnoses Orde r Schedule CBC auto differential Lab Routine Thrombocytopenic disorder (CMS/HCC) Abnormal uterine bleeding Iron deficiency anemia due to chronic blood loss Expected: 08/06/2025 (Approximate), Expires: 08/06/2026 Iron And Total Iron Binding Capacity Lab Routine Thrombocytopenic disorder (CMS/HCC) Abnormal uterine bleeding Iron deficiency anemia due to chronic blood loss Expected: 08/06/2025, Expires: 08/06/2026 Ferritin Lab Routine Thrombocytopenic disorder (CMS/HCC) Abnormal uterine bleeding Iron deficiency anemia due to chronic blood loss Expected: 08/06/2025, Expires: 08/06/2026 Vitamin B12 (Cobalamin) and Folate Panel, Serum Lab Routine Thrombocytopenic disorder (CMS/HCC) Abnormal uterine bleeding Iron deficiency anemia due to chronic blood loss Expected: 08/06/2025, Expires: 08/06/2026 Comprehensive Metabolic Panel Lab Routine Class 3 severe obesity due to excess calories without serious comorbidity with body mass index (BMI) of 45.0 to 49.9 in adult ([facility]) Expected: 08/06/2025 (Approximate), Expires: 08/06/2026 Hemoglobin A1c Lab Routine Class 3 severe obesity due to excess calories without serious comorbidity with body mass index (BMI) of 45.0 to 49.9 in adult ([facility]) Expected: 08/06/2025 (Approximate), Expires: 08/06/2026 HIV-1/2 Antigen and Antibodies, Fourth Generation, with Reflexes Lab Routine Class 3 severe obesity due to excess calories without serious comorbidity with body mass index (BMI) of 45.0 to 49.9 in adult ([facility]) Expected: 08/06/2025 (Approximate), Expires: 08/06/2026 Hepatitis C Antibody with Reflex to HCV, RNA, Quantitative, Real-Time PCR Lab Routine Class 3 severe obesity due to excess calories without serious comorbidity with body mass index (BMI) of 45.0 to 49.9 in adult ([facility]) Expected: 08/06/2025, Expires: 08/06/2026 Lipid Panel, Standard Lab Routine Class 3 severe obesity due to excess calories without serious comorbidity with body mass index (BMI) of 45.0 to 49.9 in adult ([facility]) Expected: 08/06/2025 (Approximate), Expires: 08/06/2026 Vitamin D, 25-Hydroxy, Total, Immunoassay Lab Routine Class 3 severe obesity due to excess calories without serious comorbidity with body mass index (BMI) of 45.0 to 49.9 in adult ([facility]) Expected: 08/06/2025 (Approximate), Expires: 08/06/2026 TSH with Reflex to Free T4 Lab Routine Class 3 severe obesity due to excess calories without serious comorbidity with body mass index (BMI) of 45.0 to 49.9 in adult ([facility]) Expected: 08/06/2025 (Approximate), Expires: 08/06/2026 Scheduled Referrals Name Type Priority Associated Diagnoses Order Schedule Referral to Obstetrics / Gynecology Outpatient Referral Routine Abnormal uterine bleeding Iron deficiency anemia due to chronic blood loss Expected: 08/06/2025 (Approximate), Expires: 08/06/2026 documented as of this encounter Visit Diagnoses Diagnosis Thrombocytopenic disorder ([facility]/HCC)- Primary Abnormal uterine bleeding Unspecified disorder of menstruation and other abnormal bleeding from female genital tract Iron deficiency anemia due to chronic blood loss Iron deficiency anemia secondary to blood loss (chronic) Class 3 severe obesity due to excess calories without serious comorbidity with body mass index (BMI) of 45.0 to 49.9 in adult (HCC) 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
--- OUTSIDE RECORDS SUMMARY | 2025-08-06 14:03 | XMS_ITS | Clinical Summary ---
Author Organization [employer] Address [address] [place] [address] Care Team Providers Care Claim Technician Name Role Phone Alayna Krishna MD Primary Care Provide r Allergies Active Allergy Reactions Criticality Noted Date Comments Shrimp Extract Angioedema 08/29/2018 Medications famotidine (Pepcid) 20 MG tabletIndication s:Nausea Take 1 tablet (20 mg) by mouth in the morning. 30 tablet 11 04/11/20 23 Active albuterol 108 (90 Base) MCG/ACT inhalerIndicatio ns:Mild intermittent asthma without complication Inhale 2 puffs every 6 (six) hours if needed for wheezing. 18 g 2 12/30/19 24 Active cetirizine (ZyrTEC) 10 MG tabletIndication s:Seasonal allergies Take 1 tablet (10 mg) by mouth Once per day. 30 tablet 2 12/30/19 24 Active fluticasone (Flonase Allergy Relief) 50 MCG/ACT nasal sprayIndications :Seasonal allergies Administer 2 sprays into each nostril Once per day. 16 g 2 12/30/19 24 Active cetirizine (ZyrTEC) 10 MG tabletIndication s:Seasonal allergies Take 1 tablet (10 mg) by mouth Once per day. 30 tablet 11 01/02/20 25 026 Active fluticasone (Flonase) 50 MCG/ACT nasal sprayIndications :Seasonal allergies INSTILL 1 SPRAY IN EACH NOSTRIL ONCE DAILY 48 g 03/26/20 25 Active naproxen (Naprosyn) 500 MG tabletIndication s:Migraine with aura and without status migrainosus, not intractable Take 1 tablet (500 mg) by mouth 2 times daily. 60 tablet 5 11:19 AM EST 08/06/20 25 026 Active FeroSul 325 (65 Fe) MG tablet Take 1 tablet by mouth 2 times daily. 08/05/20 22 025 Discontinued HPV 9-valent (Gardasil 9) suspension prefilled syringe vaccine prefilled syringe apply IM once 04/16/20 22 025 Discontinued Multiple Vitamin (Multi-Vitamin) tablet 1 tab by oral route daily 07/02/20 20 025 Discontinued Vit-Fe Fumarate-FA ( Vitamins) 28-0.8 MG tabletIndication s:Family planning Take 1 tablet by mouth Once daily. 30 tablet 3 05/19/20 23 025 Discontinued naproxen (Naprosyn) 250 MG tablet 1-2 tablest by oral route 2 times per day prn pain 10 tablet 11/29/19 24 025 Discontinued Ascorbic Acid (vitamin C) 250 MG tablet Take 1 tablet (250 mg) by mouth 2 times daily. Take with ferrous sulfate tablets. 60 tablet 2 01/03/20 24 025 Discontinued Active Problems Patient Care Coordination No te Formatting of this note migh t be different from the original. C3/CM Maral Valdez RN Problem Noted Date Diagnosed Date Class 3 severe obesity due t o excess calories without serious comorbidity with body mass index (BMI) of 45.0 to 49.9 in adult 08/06/2025 Autoimmune thrombocytopenia (CMS/HCC) 08/06/2025 Migraine with aura and witho ut status migrainosus, not intractable 08/06/2025 Encounter for Papanicolaou smear of cervix 03/08 [...] EDT): I presented her case to [facility] and send [...] adults. Nicole asked her to call her cover mat machine operator to request status of the referral. Assessment & Plan (12/29/2022 11:41 AM EDT): CBC will be check with labs Allergic rhinitis 07/02/2016 Resolved Problems Problem Noted Date Diagnosed Date Resolved Date Diminished vision 01/01/2025 03/26/2025 Encounters Date Type Department Care Team Description 08/06/2025 10:00 AM EST Office Visit [facility] [address] [place] [phone] Alayna Krishna MD Thrombocytopenic disorder (CMS/HCC) (Primary Dx); Abnormal uterine [...] status migrainosus, not intractable; Encounter for immunization 08/06/2025 Travel 08/05/2025 Telephone [facility] [address] [place] [address] Alayna Krishna MD Chart Prep 08/05/2025 Travel 05/22/2025 Orders Only GENERIC EXTERNAL DATA DEPARTMENT Provider, Generic External Data from Last 3 Months Immunizations Immunization Administration Dates Next Due DTaP 02/17/2005,06/10/2004,03/24/2004 DTaP, 5 pertussis antigens 2003 HPV 9-Valent 08/11/2017,05/17/2016 Hep A, ped/adol, 2 dose 08/11/2017,05/17/2016 Hep B, Adolescent or Pediatric 03/24/2004,2003,2003 HiB, unspecified 02/17/2005,03/24/2004, 4 Hib (PRP-T) 2003 IPV 05/17/2016, 4,01/08/2004,07/30 Influenza injectable quadriv alent preservative free 05/19/2023,08/29/2018,07/02/2016 Influenza, injectable, quadr ivalent, preservative free, pediatric 10/02/2015 Influenza, seasonal, injecta ble, preservative free 08/06/2025 MMR 06/02/2007,06/10/2004 Meningococcal MCV4P ACYW-135 02/21/2020,05/17/20 16 [...] Pulse 79 08/06/2025 10:06 AM EST Temperature 36.7 C (98 F) 03/08/2025 1:48 PM EDT Respiratory Rate 19 08/06/2025 10:06 AM EST Oxygen Saturation 97% 08/06/2025 10:06 AM EST Inhaled Oxygen Concentration - - Weight 129 kg (284 lb) 08/06/2025 10:06 AM EST Height 162.6 cm (5' 4 ) 08/06/2025 10:06 AM EST Body Mass Index 48.75 08/06/2025 10:06 AM EST Plan of Treatment Health Maintenance Due Date Last Done Comments Family Planning (PISQ) 2018 Meningococcal B Vaccine (1 of 2 - Standard) 2019 Pneumococcal Vaccine: Pediatrics (0 to 5 Years) and At-Risk Patients (6 to 49) Years (1 of 2 - PCV) 2022 COVID-19 Vaccine (1 - season) 2025 Chlamydia and Gonorrhea Screening 03/08/2026 03/08/2025, 05/19/2023, 09/28/2021, Additional history exists SDOH Screening 04/10/2026 04/10/2025 Disability Screening 08/05/2026 08/05/2025 Alcohol/Substance Use Screening 08/06/2026 08/06/2025 Depression Screening 08/06/2026 08/06/2025, 08/06/20 Tobacco Screening 08/06/2026 08/06/2025 Lipid Panel 12/31/2027 12/30/2022 Pap Smear 03/08/2028 [...] Completed 08/13/2024, 03/24/2004, 01/08/2004, Additional history exists Influenza Vaccine Completed 08/06/2025, , 05/19/2023, Additional history exists RSV under 20 months Aged Out No longe r eligible based on patient's age to complete this topic Rotavirus Vaccines Aged Out No longer eligible based on patient's age to complete this topic Procedures Procedure Name Priority Date/Time Associated Diagnosis Comments URINALYSIS, COMPLETE, WITH REFLEX TO CULTURE Routine 05/22/2025 11:14 PM EDT COVID-19 ID NOW (CodeRyte) Routine 05/22/2025 10:52 PM EDT INFLUENZA A B2 ID NOW (YOO) Routine 05/22/2025 10:52 PM EDT US ABDOMEN LIMITED Routine 05/22/2025 9: 18 PM EDT SLIDE REVIEW Routine 05/22/2025 8:34 PM EDT CBC WITH AUTO DIFFERENTIAL Routine 05/22/2025 8:34 PM EDT HCG, TOTAL, QN Routine 05/22/2025 8:34 PM EDT LIPASE Routine 05/22/2025 8:34 PM EDT MAGNESIUM Routine 05/22/2025 8:34 PM EDT BASIC METABOLIC PANEL Routine 05/22/2025 8:34 PM EDT HEPATIC FUNCTION PANEL Routine 05/22/2025 8:34 PM EDT CULTURE, URINE, ROUTINE Routine 05/22/2025 12:00 AM EDT PAP SMEAR Routine 03/08/2025 12:00 AM EDT [...] Recently Relevant to Health Maintenance Results * (ABNORMAL) Urinalysis, Complete, with Reflex to Culture (05/22/2025 11:14 PM EDT) Color Urine Yellow [facility] Appearance Urine Clear [facility] PH 5.5 5.0 - 9.0 [facility] Glucose Urine UA Negative Negative mg/dL [facility] Urine Blood Negative Negative [facility] Specific [place] - Urine 1.025 1.005 - 1.025 [facility] Urine Protein Negative Neg-Trace mg/dL [facility] Urine Ketones Negative Negative mg/dL [facility] Nitrite Urine Negative Negative [facility] Leukocyte Esterase Urine Small (1+)(A) Negative [facility] RBC Urine 0-2 0 - 2 /HPF [facility] Urine WBC 21-50(A) 0 - 5 /HPF [facility] Urine Squamous Epithelial Cell 6-10 0 - 2 /HPF [facility] Urine Bacteria 4+ None Seen [facility] Hyaline Casts, Urine 0-2 0 - 2 /LPF [facility] 05/22/2025 11:1 4 PM EDT 05/22/2025 11:16 PM EDT Narrative [facility] - 05/22/2025 11:24 PM EDT [id number], Clean Catch Generic External Data Provider LAB URINE ORDERAB LES Final Result Performing Organization Address [facility]/ZIP Co de Phone Number [facility] [address] [place] [address] [phone] * Influenza A B2 ID NOW (Yoo) (05/22/2025 10:52 PM EDT) IDNOW SERIAL# [id number] [facility] Influenza A Negative Negative [facility] Influenza B2 Negative Negative [facility] Influenza A B2 Note See Note [facility] Comment:The Yoo ID NOW In fluenza A B2 test is used for thequalitative detection of influenza A and B from patientswith signs and symptoms of respiratory infection.Negative results do not preclude influenza virus infectionand should not be used as the sole basis for diagnosis,treatment or other patient management decisions.There is a risk of false negative results due to thepresence of variants in the viral targets of the assay, lowlevels of virus in the specimen and co- infection withRespiratory Syncytial Virus. 05/22/2025 10:5 2 PM EDT 05/22/2025 10:56 PM EDT us Generic External Data Provider LAB MICROBIOLOGY - GENERAL ORDERABLES Final Result Performing Organization Address [facility]/ZIP Co de Phone Number [facility] [address] [place] [phone] * COVID-19 ID NOW (YOO) (05/22/2025 10:52 PM EDT) IDNOW SERIAL# [id number] [facility] COVID-19 TEST Negative Negative [facility] COVID-19 NOTE See Note [facility] Comment: Results are for the identification of SARS-CoV2 RNA. TheSARS-CoV2 RNA is generally detectable in respiratory samplesduring the acute phase of infection. Positive results areindicative of the presence of SARS-CoV-2 RNA; clinicalcorrelation with patient history and other diagnosticinformation is necessary to determine patient infectionstatus. Positive results do not rule out bacterial infectionor co- infection with other viruses.Testing facilities within the [facility] and [facility] are required to report all positive results tothe appropriate public health authorities.Negative results should be treated as presumptive and, ifinconsistent with clinical signs and symptoms or necessaryfor patient management, should be tested with differentauthorized or cleared molecular tests. Negative results donot preclude SARS-CoV2 RNA infection and should not be usedas the sole basis for patient management decisions. Negativeresults should be considered in the context of a patient'srecent exposures, history and the presence of clinical signsand symptoms consistent with COVID-19.This test has been authorized by the FDA under an EmergencyUse Authorization (EUA) for use by authorized laboratories.Testing performed on the [facility] ID NOW utilizing NAAT. 05/22/2025 10:5 2 PM EDT 05/22/2025 10:56 PM EDT us Generic External Data Provider LAB MOLECULAR HENOK GNOSTICS ORDERABLES Final Result [facility] [address] [place] [phone] * US Abdomen Limited (05/22/2025 9:18 PM EDT) Anatomical Region Laterality Modality Abdomen Ultrasound 05/22/2025 9:18 PM EDT Narrative 05/22/2025 9:19 PM EDT [address] [address] Ultrasound Report Signed Patient: Hyun Medina MR#: [id number] 5 : 2005 Acct:[id number] Age/Sex: 19 / F ADM Date: 05/22/25 Loc: HO.ED Attending Dr: Ordering Physician: Yolanda Valencia Date of Service: 05/22/25 Procedure(s): US abdomen limited Accession Number(s): [id number] cc: Alayna Krishna MD; Yolanda Valencia Reason for Exam: RUQ pain CLINICAL HISTORY: RUQ pain US abdomen limited Comparison: None provided Findings: Majority of the pancreas is obscured by overlying bowel gas. Imaged liver measures 14 cm. Right kidney and aorta are obscured. Partially imaged IVC is unremarkable. No gallbladder wall thickening or pericholecystic fluid. No definite shadowing stones within the imaged gallbladder. Portions of the gallbladder, including fundus are obscured. Imaged CBD is nondilated measuring 4 mm diameter. No right upper quadrant ascites or right pleural effusion in the [id number]. Main portal vein is obscured. Prominent bowel gas noted. IMPRESSION: 1. No ultrasound findings of acute cholecystitis. 2. Imaged CBD is nondilated. This document has been electronically signed by: Tejinder Aponte MD on 05/22/2025 21:18:26 Dictated By: Tejinder Aponte MD Signed By: <Electronically signed by Tejinder Aponte MD in OV> 05/22/252118 DD/ 17 TD/TT: 05/22/252117 Field Operations Technician: Procedure Note Donotuseinterpreter, Image - 05/22/2025 [place] [address] Ultrasound Report Signed Patient: Aminata MedinaR#: [id number] 5 : 2005Acct:[id number] Age/Sex: 19 / FADM Date: 05/22/25 Loc: HO.ED Attending Dr: Ordering Physician: Yolanda Valenica Date of Service: 05/22/25 Procedure(s): US abdomen limited Accession Number(s): [id number] cc: Alayna Krishna MD; Yolanda Valencia Reason for Exam: RUQ pain CLINICAL HISTORY: RUQ pain US abdomen limited Comparison: None provided Findings: Majority of the pancreas is obscured by overlying bowel gas. Imaged liver measures 14 cm. Right kidney and aorta are obscured. Partially imaged IVC is unremarkable. No gallbladder wall thickening or pericholecystic fluid. No definite shadowing stones within the imaged gallbladder. Portions of the gallbladder, including fundus are obscured. Imaged CBD is nondilated measuring 4 mm diameter. No right upper quadrant ascites or right pleural effusion in the [id number]. Main portal vein is obscured. Prominent bowel gas noted. IMPRESSION: 1. No ultrasound findings of acute cholecystitis. 2. Imaged CBD is nondilated. This document has been electronically signed by: Tejinder Aponte MD on 05/22/2025 21:18:26 Dictated By: Tejinder Aponte MD Signed By: <Electronically signed by Tejinder Aponte MD in OV> 05/22/252118 DD/ 17 TD/TT: 05/22/252117 Field Operations Technician: us [facility] External Provider IMG US PROCEDURES Final Result * Slide Review (05/22/2025 8:34 PM EDT) Slide Review VERIFIED [facility] 05/22/2025 8:34 PM EDT 05/22/2025 8:38 PM EDT Generic External Data Provider LAB BLOOD ORDERAB LES Final Result [facility] [address] [place] [address] [phone] * (ABNORMAL) CBC auto differential (05/22/2025 8:34 PM EDT) White Blood Count 5.0 4.8 - 10.8 X10*3/uL [facility] Red Blood Count 5.25 4.20 - 5.50 X10*6/uL [facility] Hemoglobin 14.0 12.0 - 16.0 g/dl [facility] Hematocrit 41.6 37.0 - 47.0 % [facility] Mean Corpuscular Volume 79.2(L) 80.0 - 98.0 fL [facility] Mean Corpuscular Hemoglobin 26.7(L) 27.0 - 33.0 pg [facility] Mean Corpuscular HGB Conc 33.7 31.0 - 35.0 g/dl [facility] Red Cell Distribution Width 13.1 11.0 - 16.0 % [facility] Platelet Count 44(L) 160 - 400 X10*3/uL [facility] Neutrophils Percent Auto 71.3 45 - 73 % [facility] Imm Gran Pct Auto 1.0(H) 0.0 - 0.4 % [facility] Lymphocytes Percent Auto 18.7(L) 20 - 40 % [facility] Monocytes Percent Auto 8.0 2 - 11 % [facility] Eosinophils Percent Auto 0.4 0 - 4 % [facility] Basophils Percent Auto 0.6 0 - 2 % [facility] NRBC Pct Auto 0.0 0.0 - 0.2 /100WBC [facility] Neutrophils Absolute Auto 3.6 2.0 - 8.3 x10*3/uL [facility] Imm Gran Abs Auto 0.05(H) 0.00 - 0.03 X10*3/uL [facility] Lymphocytes Absolute Auto 0.9(L) 1.2 - 4.9 X10*3/uL [facility] Monocytes Absolute Auto 0.4 0.1 - 1.2 X10*3/uL [facility] Eosinophils Absolute Auto 0.0 0.0 - 0.4 X10*3/uL [facility] Basophils Absolute Auto 0.0 0.0 - 0.2 X10*3/uL [facility] NRBC Abs Auto 0.000 0.0 - 0.012 X10*3/uL [facility] 05/22/2025 8:34 PM EDT 05/22/2025 8:38 PM EDT us Generic External Data Provider LAB BLOOD ORDERAB LES Edited Result - Final [facility] [address] [place] [phone] * hCG, Total, Quantitative (05/22/2025 8:34 PM EDT) [facility] HCG Quantitative <2 mIU/mL [facility] Comment:Weeks post LMP Appro ximate hCG(Last Menstrual Period) Range (mIU/ml)3 - 4 weeks 9 - 1304 - 5 weeks 75 - 2,6005 - 6 weeks 850 - 20,8006 - 7 weeks 4000 - 100,2007 - 12 weeks 11,500 - 289,60098 - 16 weeks 18,300 - 137,05662 - 29 weeks (2nd trimester) 1,400 - 53,21124 - 41 weeks (3rd trimester) 940 - 60,000The Yoo B- hCG assay is used for the early detection ofpregnancy; it cannot be used to diagnose any conditionunrelated to . If a B-hCG level is not supportedby the clinical evidence, results should be confirmed by analternative method (qualitative urine hCG, for example). 05/22/2025 8:34 PM EDT 05/22/2025 8:38 PM EDT us Generic External Data Provider LAB BLOOD ORDERAB LES Final Result Performing Organization Address City/[facility]/ZIP Co de Phone Number [facility] [address] [place] [phone] * Magnesium (05/22/2025 8:34 PM EDT) [facility] Magnesium 2.1 1.6 - 2.6 mg/dL [facility] 05/22/2025 8:34 PM EDT 05/22/2025 8:38 PM EDT us Generic External Data Provider LAB BLOOD ORDERAB LES Final Result Performing Organization Address City/[facility]/ZIP Co de Phone Number [facility] [address] [place] [phone] * Lipase (05/22/2025 8:34 PM EDT) Lipase 19 8 - 78 U/L [facility] 05/22/2025 8:34 PM EDT 05/22/2025 8:38 PM EDT Generic External Data Provider LAB BLOOD ORDERAB LES Final Result Performing Organization Address [facility] Co de Phone Number [facility] [address] [place] [phone] * Hepatic Function Panel (05/22/2025 8:34 PM EDT) Pathologist [facility] Bilirubin, Total 0.4 0.0 - 1.0 mg/dL [facility] Bilirubin, Direct 0.1 0.0 - 0.5 mg/dL [facility] Aspartate Amino Transferase 29 5 - 31 U/L [facility] Alanine Aminotransferase 29 0 - 31 U/L [facility] Total Protein 7.6 6.5 - 8.0 g/dL [facility] Albumin Level 4.5 3.5 - 5.0 g/dL [facility] Alkaline Phosphatase 83 39 - 117 U/L [facility] 05/22/2025 8:34 PM EDT 05/22/2025 8:38 PM EDT [employer] External Data Provider LAB BLOOD ORDERAB LES Final Result Performing Organization Address [facility] de Phone Number [facility] [address] [place] [phone] * (ABNORMAL) Basic Metabolic Panel (05/22/2025 8:34 PM EDT) Pathologist [facility] Sodium 138 135 - 145 mmol/L [facility] Potassium 3.6 3.3 - 5.1 mmol/L [facility] Chloride 108 96 - 108 mmol/L [facility] Carbon Dioxide 23 22 - 29 mmol/L [facility] Anion Gap 11(L) 12 - 20 [facility] Urea Nitrogen (BUN) 11 9 - 16 mg/dL [facility] Creatinine, Serum 0.67 0.5 - 1.4 mg/dL [facility] Creatinine Clr Calc Pharmacy 172.5 [facility] Comment:Provided height and weight: 162.56 cm,123.6 kg.eGFR (calculated from the MDRD study equation) and eCrCl(calculated from the Cockcroft-Gault equation) are based ondifferent parameters and may not yield comparable results.If eCrCl result is absurd, please check patient'sheight/weight. Estimated Glomerular Filt Rate >60 [facility] Comment:Chronic Kidney Disea se: Estimated GFR < 60 mL/min/1.02j4Ybllbw Kidney Disease: Estimated GFR < 15 mL/min/1.73m2 Glucose 97 60 - 115 mg/dL [facility] Calcium 9.1 8.4 - 10.2 mg/dL [facility] 05/22/2025 8:34 PM EDT 05/22/2025 8:38 PM EDT us Generic External Data Provider LAB BLOOD ORDERAB LES Final Result [facility] [address] [place] [phone] * Culture, Urine, Routine (05/22/2025 12:00 AM EDT) Urine Urine specimen obtained by clean catch procedure / Unknown 05/22/2025 05/22/2025 Comment:UACC Narrative [facility] - 05/24/2025 1:30 PM EDT Urine Culture Report Result Urine Culture < 10,000 cfu/ml Specimen Source: Urine clean catch Generic External Data Provider LAB MICROBIOLOGY - GENERAL ORDERABLES Final Result Performing Organization Address City/[facility]/ZIP Co de Phone Number [facility] [address] [place] [phone] * Pap Smear (03/08/2025 12:00 AM EDT) Swab 03/08/2025 03/12/2025 9:0 9 AM EDT [facility] - 03/21/2025 3:57 PM EDT ----- ------- Name: Hyun Medina Age/Sex: 19/F : 2005 Unit#: [id number] Attend Dr: Alayna Krishna MD Re03/08/25 Status: DEP [facility] ----- ------- SPEC : [id number] RECD: 03/12/25 STATUS: SETH WOLFE NUM: [id number] MENG: 03/08/25-[address]: Alayna Krishna MD ENTERED: 03/12/25 SP TYPE: Pap Smr [facility] DR: ORDERED: Pap Smear, PAP path review [...] and HPV testing will be performed at [facility] (CLIA #[id number]), [address] [place] [address]. Testing for HPV was performed using the [...] detected. All professional services are performed by [facility] ([address] [place] [address]; ; CLIA #[id number]). The PAP Test is a screening procedure with the inherent possibility of both false negative and false positive results. Results should be interpreted in the context of historic and current clinical findings. Reliability of the PAP Test is enhanced by performing the test on a regular repetitive basis. ----- ------- Signed (signature on file) Sheyla Chatterjee 03/21/25 1557 ----- ------- END OF REPORT us Alayna Rodriguez MD LAB CYTOLOGY ORDERABL ES Final Result [facility] [address] [place] [address] [phone] * HIV Ab/Ag ([place]) (05/19/2023 11:26 AM EDT) HIV AB/AG Nonreactive Nonreactive [facility] Comment:HIV-1 p24 Ag and/or HIV-1/HIV-2 Ab not detected.A test result that is nonreactive does not exclude thepossibility of exposure to or infection with HIV-1 and/orHIV-2. Nonreactive results in this assay for individualswith prior exposure to HIV-1 and/or HIV-2 may be due toantigen and antibody levels that are below the limit ofdetection of this assay.The ActiveO HIV Ag/Ab Combo assay result andsupplemental assay results should be interpreted inconjunction with the patient's clinical presentation,history and other laboratory results. If the results areinconsistent with clinical evidence, additional testing issuggested to confirm the result. 05/19/2023 11:2 6 AM EDT 05/19/2023 12:56 PM EDT us Alayna Rodriguez MD LAB BLOOD ORDERABLES Final Result Performing Organization Address [facility]/ZIP Co de Phone Number [facility] [address] [place] [phone] * Hepatitis C Antibody with Reflex to HCV, RNA, Quantitative, Real-Time PCR (05/19/2023 11:26 AM EDT) Hepatitis C Antibody Nonreactive Nonreactive [facility] Comment:Antibodies to HCV no t detected; does not exclude early acuteHCV infection. Blood Venous blood specimen / Unknown 05/19/2023 11:26 AM EDT 05/19/2023 12:56 PM EDT us Alayna Rodriguez MD LAB BLOOD ORDERABLES Final Result Performing Organization Address [facility] Co de Phone Number [facility] [address] [place] [phone] * Chlamydia/N. Gonorrhoeae RNA, TMA, Urogenitial (05/19/2023 11:26 AM EDT) CT PCR NOT DETECTED Not Detect. [facility] Comment:A not detected test result [...] psychologicalconsequences. NG PCR NOT DETECTED Not Detect. [facility] Comment:A not detected test result [...] AM EDT 05/19/2023 1:01 PM EDT Narrative [facility] - 05/19/2023 4:51 PM EDT Urine us Alayna Rodriguez MD LAB MICROBIOLOGY - NERAL ORDERABLES Final Result [facility] [address] [place] [phone] * (ABNORMAL) Lipid Panel, Standard (12/30/2022 8:53 AM EDT) Cholesterol, Total 226(H) <170 mg/dL [facility] [place] [facility] HDL Cholesterol 46 >45 mg/dL Ques t [facility] [place] [facility] Triglycerides 119(H) <90 mg/dL [facility] [place] [facility] [employer] LDL Cholesterol 156(H) <110 mg/dL (calc) [facility] [place] [facility] Comment: LDL-C is now calculated using the Monica calculation, which is a validated novel method providing better accuracy than the Friedewald equation in the estimation of LDL-C. Mikel SS et al. MERCEDES. 2013;310(19): 5285-6640 (http://education.Effcon MXR/faq/DVP357) Chol/HDLC Ratio 4.9 <5.0 (calc) [facility] [place] [facility] Non-HDL Cholesterol 180(H) <120 mg/dL (calc) [facility] [place] [employer] Comment: For patients with diabetes plus 1 major ASCVD risk factor, treating to a non-HDL-C goal of <100 mg/dL (LDL-C of <70 mg/dL) is considered a therapeutic option. Blood Venous blood specimen / Unknown 12/30/2022 8:53 AM EDT 12/30/2022 8:54 AM EDT Narrative [facility] - 12/31/2022 4:59 AM EDT FASTING:YES FASTING: YES us Alayna Rodriguez MD LAB BLOOD ORDERABLES Final Result [facility] [address], [place] [address] [facility] [employer] [place] [facility] [address] [place] [phone] from Last 3 Months or Most Recently Relevant to Health Maintenance Insurance [facility] C3 Care Teams Claim Technician Relationship Specialty Start Date End Date Alayna Krishna MD [address] [place] [id number] PCP - General Family Medicine 02/26/22
--- OUTSIDE RECORDS SUMMARY | 2025-08-06 14:03 | XMS_ITS | Encounter Summary ---
Author Organization [employer] Address [address] [place] [address] Care Team Providers Care Rn Post Partum Name Role Phone Alayna Krishna MD Primary Care Provide r Encounter Details Date Type Department Care Team (Latest Contact Info) Description 08/06/2025 Travel Social History Tobacco Use Types Packs/Day Years Used Date Smoking Tobacco: Former Cigarettes Passive Smoke Exposure: Past Smokeless Tobacco: Never Depression Answer Date Recorded Patient Health Questionnaire-9 [...] AM EDT documented as of this encounter Functional Status * Over the [...] [place] documented as of this encounter Plan of Treatment Not on file documented as of this encounter Visit Diagnoses Not on filedocumented in this encounter Additional Health Concerns Assessment Noted Time PHQ-9 Depression Total Score: 6 08/06/20 25 10:08 AM EST documented as of this encounter Care Teams Rn Post Partum Relationship Specialty Start Date End Date Alayna Krishna MD [address] [place] [id number] PCP - General Family Medicine 02/26/22 documented as of this encounter
--- OUTSIDE RECORDS SUMMARY | 2025-08-06 14:03 | XMS_ITS | Encounter Summary ---
Author Organization [employer] Address [address] [place] [address] Care Team Providers Care Entry Level Paralegal Name Role Phone Alayna Krishna MD Primary Care Provide r Encounter Details Date Type Department Care Team (Latest Contact Info) Description 08/05/2025 Travel Social History Tobacco Use Types Packs/Day [...] AM EDT documented as of this encounter Plan of Treatment Not on file documented as of this encounter Visit Diagnoses Not on filedocumented in this encounter Additional Health Concerns Assessment Noted Time PHQ-9 Depression Total Score: 9 04/10/20 25 10:23 AM EDT documented as of this encounter Care Teams Entry Level Paralegal Relationship Specialty Start Date End Date Alayna Krishna MD [address] [place] [address] PCP - General Family Medicine 02/26/22 documented as of this encounter
--- OUTSIDE RECORDS SUMMARY | 2025-08-06 14:03 | XMS_ITS | Encounter Summary ---
Author Organization [employer] Address [address] [facility] [address] [facility] [address] [place] [address] Care Team Providers Care Rehabilitation Liaison Name Role Phone Alayna Krishna MD Primary Care Provide r Reason for Visit * Reason Onset Date Comments Chart Prep 08/05/2025 Encounter Details Date Type Department Care Team ([facility] st Contact Info) Description 08/05/2025 Telephone [facility] [address] [place], [place] [phone] Alayna Krishna MD [address] [place], [place] [phone] Chart Prep Social History Tobacco Use Types Packs/Day Years [...] AM EDT documented as of this encounter Miscellaneous Notes * Telephone Encounter - Deana Knutson [place] - 08/05/2025 11:47 AM EST Chart Prep Labs: done Images: done Referrals: appointment pending Vaccines due: Covid, Flu, PCV20, and MCV4 Screenings: LMP and PISQ Overdue care gaps: SBIRT, PHQ-9, and MCKAY-7 documented in this encounter Plan of Treatment Not on file documented as of this encounter Visit Diagnoses Not on filedocumented in this encounter Additional Health Concerns Assessment Noted Time PHQ-9 Depression Total Score: 9 04/10/20 25 10:23 AM EDT documented as of this encounter Care Teams Rehabilitation Liaison Relationship Specialty Start Date End Date Alayna Krishna MD [address] [place] [address] PCP - General Family Medicine 02/26/22 documented as of this encounter
[2025-08-06 15:56] LABS: Alanine Aminotransferase 28 U/L (0-31); Albumin Level 4.8 g/dL (3.5-5.0); Alkaline Phosphatase 80 U/L (39-117); Anion Gap 12 (12-20); Aspartate Amino Transferase 32 U/L (5-31); Blood Urea Nitrogen 14 mg/dL (9-16); Calcium 9.5 mg/dL (8.4-10.2); Carbon Dioxide 24 mmol/L (22-29); Chloride 106 mmol/L (96-108); Cholesterol 211 mg/dL (<200); Estimated Glomerular Filt Rate > 60; HDL Cholesterol 41 mg/dL (>40); Iron 39 mcg/dL (30-160); Percent Iron Saturation 10 % (15-50); Potassium 4.0 mmol/L (3.3-5.1); Sodium 138 mmol/L (135-145); Total Iron Binding Capacity 382 mcg/dL (228-428); Total Protein 8.0 g/dL (6.5-8.0); Triglycerides 146 mg/dL (<150); Unsaturated Iron Binding 343 ug/dL
[2025-08-06 15:58] LABS: Hematocrit 38.6 % (37.0-47.0); Hemoglobin 11.8 g/dl (12.0-16.0); Imm Gran Abs Auto 0.04 X10*3/uL (0.00-0.03); Imm Gran Pct Auto 0.4 % (0.0-0.4); Lymphocytes Absolute Auto 2.1 X10*3/uL (1.2-4.9); MANUAL DIFF FLAG SCAN; Mean Corpuscular HGB Conc 30.6 g/dl (31.0-35.0); Mean Corpuscular Hemoglobin 25.5 pg (27.0-33.0); Mean Corpuscular Volume 83.4 fL (80.0-98.0); NRBC Abs Auto 0.000 X10*3/uL (0.0-0.012); NRBC Pct Auto 0.0 /100WBC (0.0-0.2); PLT CLUMP 1; Red Blood Count 4.63 X10*6/uL (4.20-5.50); SCAN SMEAR FLAG 1
[2025-08-06 16:14] LABS: Platelet Count 76 X10*3/uL (160-400); White Blood Count 9.4 X10*3/uL (4.8-10.8)
[2025-08-06 16:27] LABS: Folate 9.1 ng/mL (> or = 4.0); Vitamin B12 422 pg/mL (200-900)
[2025-08-06 16:34] LABS: Ferritin 20 ng/mL (10-122)
[2025-08-07 05:17] LABS: HIV Num 1 0.06 S/CO (0.00-0.99); ~HepC Num1 0.09 S/CO (0.00-0.79); ~Hepatitis C Antibody Nonreactive (Nonreactive)
== END 2025-08-06 10:51 | disposition home or self-care (01) ==
LOC: HO.HHCL 10:50
PROVIDERS: PCP Internal Medicine; Visit Provider Internal Medicine
DX: Z11.4 Encounter for screening for human immunodeficiency virus [HIV] (principal); Z11.59 Encounter for screening for other viral diseases; D50.0 Iron deficiency anemia secondary to blood loss (chronic); D69.6 Thrombocytopenia, unspecified; N93.9 Abnormal uterine and vaginal bleeding, unspecified; E66.813 Obesity, class 3; Z68.42 Body mass index [BMI] 45.0-49.9, adult
CPT/HCPCS: 36415; 80053; 80061; 82306; 82607; 82728; 82746; 83036; 83540; 84443; 85025; 86803; 87389